=== PATIENT | male | born 1965 | race Caucasian/White ===

== ENCOUNTER 2017-07-27 19:07 | Inpatient (IN) | payer MEDICAID ==
[~2017-07-27] VITALS: Ht 170.2 cm; Wt 50.3 kg
--- NOTE | 2017-07-27 19:07 | NUR ---
PT JORDAN ALS. TAKEN TO BED 10
[2017-07-27 19:12] VITALS: BP 118/66
--- NOTE | 2017-07-27 19:12 | NUR ---
REPORT RECEIVED FROM FARHAT SLAUGHTER.
--- NOTE | 2017-07-27 19:15 | NUR ---
BROUGHT IN BY EMS FROM [facility] C/O ALOC S/P GIVEN MORPHINE 0.5MG IM AND ATIVAN 0.5MG IM FOR COMBATIVENESS WITH STAFF.--NO INJURIES/TRAUMA. [facility] STATED PT GCS 6 IN ROUTE UPON ARRIVAL GCS 13 EYES OPENING 4, MOTOR OBEYS COMMAND 6, SPEECH INAPPROPRIATE WORDS 3--NO FACIAL ASYMMETRY. --STAFF FROM FACILITY REPORTED TO EMS , AMMONIA HIGH NO NUMBER GIVEN HX--METH USE, HEP C, SZ, HTN, ANXIETY, PSYCHOSIS, ESRD, ALCOHOL ABUSE, RX--TYLENOL 650MG SUPP, ATROPINE SULF SOLUTION 1% OS GTTS, BISACODYL SUPP, DEPAKOTE DELAYED RELEASE 250MG BID, HYDROXYZINE 10MG TID PRURITUS, LACTULOSE SOLUTION 10GM/15ML 30ML PO QID, LEVETIRACETAM 500[facility] BID, ATIVAN 0.5MG PO, MORPHINE, ZOFRAN, SEROQUEL 25MG QD (50MG HS), THIAMINE 100MG QD
--- NOTE | 2017-07-27 20:00 | NUR ---
PT AGITATED, ATTEMPTING TO GET OUT OF BED.
--- NOTE | 2017-07-27 20:00 | NUR ---
Physician order given to place VELCO type restraints to ARMS to prevent HARM TO SELF. Resraints placed with quick-release ties to bed frame. Pt under observation.
--- NOTE | 2017-07-27 20:05 | NUR ---
Dr. Carrillo evaluating patient at bedside.
[2017-07-27 20:36] LABS: BASOPHILS % (AUTO) 0.5 % (0.0-2.0); EOSINOPHILS # (AUTO) 0.2 K/uL (0-0.4); EOSINOPHILS % (AUTO) 3.6 % (0.0-4.0); HEMATOCRIT 27.1 % (36-52); HEMOGLOBIN 9.1 g/dL (12.0-18.0); LYMPHOCYTES # (AUTO) 1.1 K/uL (2.0-11.5); MEAN CORPUSCULAR HEMOGLOBIN 30 pg (27-31); MEAN CORPUSCULAR HGB CONC 34 g/dL (33-37); MEAN CORPUSCULAR VOLUME 89.6 fL (80-94); MONOCYTES # (AUTO) 0.6 K/uL (0.8-1.0); MONOCYTES % (AUTO) 11.2 % (1.7-9.3); NEUTROPHILS # (AUTO) 3.4 K/uL (1.8-7.7); NEUTROPHILS % (AUTO) 63.7 % (42.2-75.2); PLATELET COUNT (AUTO) 52 K/uL (140-450); RED BLOOD CELL COUNT(AUTO) 3.03 MIL/uL (4.20-6.10); RED CELL DISTRIBUTION WIDTH 17.4 % (11.6-13.7); WHITE BLOOD COUNT (AUTO) 5.3 K/uL (4.8-10.8)
[2017-07-27 20:54] LABS: APPEARANCE,URINE CLEAR (CLEAR); BLOOD, URINE NEGATIVE (NEGATIVE); LEUKOCYTE ESTERASE ,URINE NEGATIVE (NEGATIVE); NITRITE, URINE NEGATIVE (NEGATIVE); PH,URINE 5.5 (5.0-9.0); UGLUCOSE NEGATIVE (NEGATIVE)
[2017-07-27 20:57] LABS: BILIRUBIN,URINE NEGATIVE (NEGATIVE); COLOR,URINE AMBER (YELLOW)
[2017-07-27 21:03] LABS: BARBITURATE, URINE NEG. ng/ml (NEG <=200); BENZODIAZEPINE, URINE NEG. ng/mL (NEG <=200); CANNABINOID, URINE NEG. ng/mL (NEG <=50); COCAINE, URINE NEG. ng/mL (NEG <=300); OPIATE, URINE POS. ng/mL (NEG <=2000); PHENCYCLIDINE SCREEN,URINE NEG. ng/mL (NEG <=25)
--- NOTE | 2017-07-27 21:17 | NUR ---
PER AL AT [facility], PT WILL BE TRANSFERRED FROM [facility] TO [facility] AND THEY WILL NOTIFY HOSPITALIST. [facility] # [phone]
--- NOTE | 2017-07-27 21:30 | NUR ---
SOKE WITH PT OLAMIDE. CONCERNED ABOUT HIS PLACEMENT. STATED INFORMATION REGARDING PT IS ON HOSPICE, HAS END STAGE LIVER DISEASE AND AMJYOTHI DIAZ ELEVATED. Addendum: 07/27/17 at 2209 by [email or web address] SPOKE WITH PT OLAMIDE. CONCERNED ABOUT HIS PLACEMENT. STATED INFORMATION REGARDING PT IS ON HOSPICE, HAS END STAGE LIVER DISEASE AND JED LAGOS
[2017-07-27 22:36] LABS: ANION GAP 11.3 (8-16); CARBON DIOXIDE 27.4 mmol/L (21-32); POTASSIUM 3.7 mmol/L (3.5-5.1)
[2017-07-27 22:37] LABS: CREATININE 0.8 mg/dL (0.7-1.3)
[2017-07-27 22:40] LABS: TOTAL BILIRUBIN 1.3 mg/dL (0.0-1.0)
[2017-07-27 22:41] LABS: ALBUMIN 2.5 g/dL (3.4-5.0)
[2017-07-27] MEDS ORDERED: DOCUSATE SODIUM 100 MG GELCAP PO PRN (23:15)
[2017-07-27] MEDS ORDERED: HYDROcodone/APAP 7.5/325 MG 1 TAB PO PRN (23:15)
[2017-07-27] MEDS ORDERED: MECLIZINE 25 MG TAB PO PRN (23:15)
--- NOTE | 2017-07-27 23:39 | NUR ---
Pt transferred to Tele 107A via BED .
--- NOTE | 2017-07-27 23:45 | NUR ---
report was given to moe gomez
--- NOTE | 2017-07-27 23:45 | NUR ---
ADMITTED PT FROM ER VIA GURNEY. PT IS AGITATED AND TRYING TO GET OUT OF BED. NO RESP DISTRESS NOTED. PT ON ROOM AIR. NO S/S OF PAIN. PT HAS REDNESS TO SACRAL AREA. SCABS TO LEFT ARM AND RIGHT HAND. PICTURES TAKEN. IV TO RIGHT UPPER ARM #18G. SAFETY PRECAUTION IN PLACE. WILL CONTINUE TO MONITOR.
[2017-07-27] MEDS ORDERED: VITB1I PO (23:55)
[2017-07-27] MEDS ORDERED: LEVE500T9 PO (23:55)
[2017-07-27] MEDS ORDERED: ACET-2619 RC (23:55)
[2017-07-27] MEDS ORDERED: DIVA250T PO (23:55)
[2017-07-27] MEDS ORDERED: QUET50TA PO (23:55)
[2017-07-27] MEDS ORDERED: LACT10SO1 PO (23:55)
[2017-07-27] MEDS ORDERED: QUET25TA PO (23:55)
[2017-07-27] MEDS ORDERED: ATA10 PO (23:55)
[2017-07-28] VITALS: BP 137/88
[2017-07-28] MEDS ORDERED: ATI.5 PO (00:10)
[2017-07-28] MEDS ORDERED: ONDA4TAB PO (00:10)
[2017-07-28] MEDS ORDERED: MINOIL PO (00:10)
[2017-07-28] MEDS ORDERED: MSCON15 PO (00:10)
[2017-07-28] MEDS ORDERED: BISA5ECT43 PO (00:10)
[2017-07-28] MEDS ORDERED: ATRO10DR OP (00:10)
[2017-07-28] MEDS ORDERED: MORP10SO PO (00:10)
[2017-07-28] MEDS ORDERED: MINERAL OIL 30 ML UDC PO SCH (00:15)
[2017-07-28] MEDS ORDERED: MORPHINE TAB ER 15 MG TABER PO PRN (00:15)
[2017-07-28] MEDS ORDERED: ACETAMINOPHEN 325 MG TAB PO SCH (00:15)
[2017-07-28] MEDS ORDERED: BISACODYL 10 MG SUPP RC ONE (00:15)
[2017-07-28] MEDS ORDERED: ONDANSETRON 4 MG TAB PO PRN (00:15)
[2017-07-28] MEDS ORDERED: LORazepam 0.5 MG TAB PO SCH (00:15)
[2017-07-28] MEDS ORDERED: MORPHINE SULFATE ORAL SOLN 2 MG/ML UDC PO PRN (00:15)
[2017-07-28] MEDS ORDERED: QUEtiapine FUMARATE 25 MG TAB PO SCH (00:30)
--- NOTE | 2017-07-28 00:30 | NUR ---
PT IS AGITATED AND COMBATIVE TRYING TO GET OUT OF BED. SOFT WRIST RESTRAINT APPLIED. NO RESP DISTRESS NOTED. NO S/S OF PAIN.
[2017-07-28] MEDS ORDERED: THIA100T34 PO (00:32)
[2017-07-28 00:40] LABS: CHOL/HDL RATIO 4.1 (1-4.5); FREE T4 (FREE THYROXINE) 1.15 ng/dL (0.76-1.46); MAGNESIUM 1.5 mg/dL (1.8-2.4); PHOSPHORUS 3.9 mg/dL (2.5-4.9); THYROID STIMULATING HORMONE 1.71 uIU/mL (0.34-3.74)
[2017-07-28] MEDS: NACL 0.9% 1,000 ML IV SCH ×2 (00:42→10:30)
[2017-07-28] MEDS ORDERED: MAG SULF 2000 MG/WATER PREMIX 50 ML IV SCH (02:00)
[2017-07-28] MEDS ORDERED: LACTULOSE 20 GM/30 ML UDC PO SCH (02:00)
--- NOTE | 2017-07-28 02:11 | NUR ---
PT TRYING TO REMOVE SOFT WRIST RESTRAINTS AND TRYING TO KICK NURSES TO GET OUT OF BED . DR. MAN ORDERED TO GIVE ATIVAN 2 MG IVP. ORDER CARRIED OUT.
[2017-07-28] MEDS ORDERED: LORazepam 2 MG/ML VIAL IM/IVP SCH (02:30)
[2017-07-28] MEDS: HALOPERIDOL IM 5 MG/ML VIAL IM PRN (03:47)
--- NOTE | 2017-07-28 03:47 | NUR ---
PT STILL AGITATED AND TRYING TO GET OUT OF BED. DR. MAN ORDERED HALDOL 5 MG IM. ORDERED CARRIED OUT.
--- NOTE | 2017-07-28 04:00 | NUR ---
PT REMOVED TELE MONITOR AND REFUSED TO PUT IT BACK. REFUSED VS CHECK.
--- NOTE | 2017-07-28 04:28 | NUR ---
PT STILL TRYING TO GET OUT OF BED. ASSISTED PT BACK TO BED. NO RESP DISTRESS NOTED. SAFETY PRECAUTION IN PLACE.
--- NOTE | 2017-07-28 06:25 | NUR ---
PT SLEEPING BUT WAKES EASILY. NO S/S OF DISTRESS NOTED.
--- NOTE | 2017-07-28 06:48 | NUR ---
PATIENT HAS BEEN SCREENED AND CATEGORIZED LOW NUTRITION RISK. PATIENT WILL BE SEEN WITHIN 7 DAYS OF ADMISSION. 08/02/17 DUC DIAZ MS, RDN
--- NOTE | 2017-07-28 07:00 | NUR ---
ENDORSED PT TO DAY SHIFT NURSE. PT IN STABLE CONDITION.
--- NOTE | 2017-07-28 07:10 | NUR ---
RECEIVED PT FROM SPACE TECHNOLOGIST NURSEBRADLEY, PT IS AWAKE AND ON A SOFT WRIST RESTRAINT. SIDE RAILS ARE UP AND CALL LIGHT WITHIN REACH.PT HAS AN IV LINE ON THE RT UA G. 18, WITH NS RUNNING AT 100ML/HR, INTACT. PT'S MENTAL STATUS IS ALTERED AND IS NON-VERBAL. NO SIGN OF DISTRESS AND SAFETY PRECAUTION ENSURED. WILL CONTINUE TO MONITOR.
[2017-07-28 07:11] LABS: BASOPHILS % (AUTO) 0.5 % (0.0-2.0); EOSINOPHILS # (AUTO) 0.3 K/uL (0-0.4); EOSINOPHILS % (AUTO) 4.6 % (0.0-4.0); HEMATOCRIT 30.8 % (36-52); HEMOGLOBIN 10.4 g/dL (12.0-18.0); LYMPHOCYTES # (AUTO) 1.2 K/uL (2.0-11.5); LYMPHOCYTES % (AUTO) 21.9 % (20.5-51.1); MEAN CORPUSCULAR HEMOGLOBIN 30 pg (27-31); MEAN CORPUSCULAR HGB CONC 34 g/dL (33-37); MEAN CORPUSCULAR VOLUME 89.8 fL (80-94); MONOCYTES # (AUTO) 0.6 K/uL (0.8-1.0); MONOCYTES % (AUTO) 10.8 % (1.7-9.3); NEUTROPHILS # (AUTO) 3.4 K/uL (1.8-7.7); NEUTROPHILS % (AUTO) 62.2 % (42.2-75.2); PLATELET COUNT (AUTO) 55 K/uL (140-450); RED BLOOD CELL COUNT(AUTO) 3.43 MIL/uL (4.20-6.10); RED CELL DISTRIBUTION WIDTH 17.5 % (11.6-13.7); WHITE BLOOD COUNT (AUTO) 5.4 K/uL (4.8-10.8)
[2017-07-28 07:35] LABS: MAGNESIUM 2.3 mg/dL (1.8-2.4); PHOSPHORUS 3.3 mg/dL (2.5-4.9)
[2017-07-28 07:41] LABS: ANION GAP 13.1 (8-16); CARBON DIOXIDE 26.5 mmol/L (21-32); CREATININE 0.8 mg/dL (0.7-1.3); POTASSIUM 3.6 mmol/L (3.5-5.1)
[2017-07-28 08:00] VITALS: BP 140/96
[2017-07-28] MEDS ORDERED: MINERAL OIL 30 ML UDC PO PRN (08:25)
[2017-07-28] MEDS: THIAMINE 100 MG TAB PO SCH (08:39)
[2017-07-28] MEDS: levETIRAcetam 500 MG TAB PO SCH ×2 (08:39→21:16)
[2017-07-28] MEDS: QUEtiapine FUMARATE 25 MG TAB PO SCH ×2 (08:39→21:17)
[2017-07-28] MEDS: hydrOXYzine HCL 10 MG TAB PO SCH ×3 (08:40→17:02)
[2017-07-28] MEDS: DIVALPROEX 500 MG TABEC PO SCH ×2 (08:40→21:16)
[2017-07-28] MEDS: FERROUS GLUCONATE 324 MG TAB PO SCH ×2 (08:41→17:02)
[2017-07-28] MEDS: DOCUSATE SODIUM 100 MG GELCAP PO SCH ×2 (08:41→21:16)
--- NOTE | 2017-07-28 09:10 | NUR ---
PT IS AWAKE AND VITAL SIGNS TAKEN AND IS STABLE. NO SIGN OF DISTRESS NOTED. RESTRAINT WAS RELEASED AND ASSESSMENT WAS DONE ON THE PT. PT IS AWAKE AND WAS TRYING TO GET UP AND GO DOWN ON THE BED. ASSISTED BACK TO BED AND SAFETY PRECAUTION ENFORCED.
[2017-07-28 12:00] VITALS: BP 132/91
--- NOTE | 2017-07-28 12:35 | NUR ---
GENARO FROM CASE MANAGEMENT CALLED AND ASKED REGARDING THE STATUS OF THE PT. INQUIRY ANSWERED. INFORMED GENARO THAT PT MUST BEM PLACE ON A HOSPICE PER SUPERVISOR WOOL SHEARING NURSE ENDORSEMENT.
--- NOTE | 2017-07-28 12:45 | NUR ---
ASSESSED RESTRAINTS ON THE PT AND VITAL SIGNS TAKEN AND IS STABLE. PT IS ATTEMPTING TO GO DOWN OUT FROM THE BED, ASSISTED BACK TO BED AND MADE COMFORTABLE. MEDICATION GIVEN AND PT TOLERATED IT. NO SIGN OF DISTRESS NOTED. WILL MONITOR.
[2017-07-28 16:00] VITALS: BP 117/90
--- NOTE | 2017-07-28 17:20 | NUR ---
PT IS AWAKE AND VITAL SIGNS TAKEN AND RESTRAINT WAS ASSESSED. NO SIGN OF DISTRESS NOTED AND WILL MONITOR.
--- NOTE | 2017-07-28 18:50 | NUR ---
PT PULLED OUT HIS IV LINE AND RESTRAINT WAS TAKEN OUT. PT WAS CLEANED UP AND RESTRAINT WAS PUT IN PLACE. NO SIGN OF DISTRESS NOTED. WILL ENDORSE TO WEB FEEDER NURSE.
--- NOTE | 2017-07-28 19:15 | NUR ---
ENDORSED PT TO ANATOMIC PATHOLOGY MANAGER NURSE, KARON, PT IS STABLE AT THIS TIME.
--- NOTE | 2017-07-28 19:16 | NUR ---
RECEIVED PT FROM DAY SHIFT NURSE MARY-FARHAT. ANX1-CONFUSED AND AWAKE WITH SOFT WRIST RESTRAINT ON. ON ROOM AIR AND NO IV SITE. LEFT ELBOW AND RIGHT HAND SCABS, ALSO SACRAL REDNESS. DISCUSSED PLAN OF CARE HOWEVER PT WAS UNABLE TO RESPOND APPROPRIATELY. PT'S MENTAL STATUS IS ALTERED AND IS NON-VERBAL. NO S/S OF RESPIRATORY DISTRESS OR DISCOMFORT. BED IN LOWEST POSITION, BED BREAKS ON, SIDE RAILS ARE UP. BED SIDE TABLE AND CALL LIGHT WITHIN REACH. WHITE BOARD UPDATED. WILL CONTINUE TO MONITOR.
--- NOTE | 2017-07-28 19:55 | NUR ---
SPOKE WITH DR. MAN ABOUT PT TAKING OUT IV SITE FOR THE SECOND TIME. DR. MAN TO D/C IVF. WILL CONTINUE TO MONITOR.
[2017-07-28 20:00] VITALS: BP 135/84
--- NOTE | 2017-07-28 20:00 | NUR ---
VITAL SIGNS TAKEN AND TOLERATED WELL. WILL CONTINUE TO MONITOR.
--- NOTE | 2017-07-28 20:45 | NUR ---
SOFT WRIST RESTRAINS TAKEN OFF FOR 15 MINUTES. NO SIGNS OF INJURY. PT CONTINUES TO TRY TO GET OUT OF BED. REORIENTED PT. RESTRAINTS APPLIED AGAIN. WILL CONTINUE TO MONITOR.
[2017-07-28] MEDS: LACTULOSE 20 GM/30 ML UDC PO SCH (21:16)
--- NOTE | 2017-07-28 21:20 | NUR ---
SCHEDULED MEDICATION GIVEN. PT HAD A DIFFICULT TIME SWALLOWING COLACE GEL CAPSULE. WILL SPEAK WITH DR. MAN ON POSSIBLY CHANGING MEDICATION TO LIQUID. WILL CONTINUE TO MONITOR.
--- NOTE | 2017-07-28 21:53 | NUR ---
PT SLEEPING IN BED. NO S/S OF RESPIRATORY DISTRESS OR DISCOMFORT. WILL CONTINUE TO MONITOR.
[2017-07-29] VITALS: BP 124/87
--- NOTE | 2017-07-29 | NUR ---
VITAL SIGNS TAKEN AND TOLERATED WELL. NO S/S OF RESPIRATORY DISTRESS OR DISCOMFORT. WILL CONTINUE TO MONITOR.
[2017-07-29] MEDS ORDERED: LORazepam 2 MG/ML VIAL IVP ONE (00:30)
[2017-07-29] MEDS ORDERED: LORazepam 2 MG/ML VIAL ONE (00:33)
--- NOTE | 2017-07-29 00:36 | NUR ---
ATIVAN GIVEN BY CHARGE NURSE TRISTAN FOR AGITATION. WILL CONTINUE TO MONITOR.
[2017-07-29 04:00] VITALS: BP 94/60
--- NOTE | 2017-07-29 04:00 | NUR ---
VITAL SIGNS TAKEN AND TOLERATED WELL. NO S/S OF RESPIRATORY DISTRESS OR DISCOMFORT. WILL CONTINUE TO MONITOR.
--- NOTE | 2017-07-29 06:00 | NUR ---
PT SLEEPING IN BED. NO S/S OF RESPIRATORY DISTRESS OR DISCOMFORT AT THIS TIME. WILL CONTINUE TO MONITOR.
--- NOTE | 2017-07-29 07:30 | NUR ---
RECEIVED PT REPORT FROM POT FLUXER NURSE. PT IS SLEEPING, DROWSY, OX1. SOFT WRIST RESTRAINT ON. CIRCULATION IS FINE, CAP REFILL LESS THAN 3SEC. NO S/S OF ACUTE DISTRESS ON ROOM AIR. NO IV SITE NOTED. LEFT ELBOW AND RIGHT HAND SCABS, ALSO SACRAL REDNESS. BED IN LOWEST POSITION, BED BREAKS ON, SIDE RAILS ARE UP. BED SIDE TABLE AND CALL LIGHT WITHIN REACH. BOARD UPDATED. WILL CONTINUE TO MONITOR.
--- NOTE | 2017-07-29 07:34 | NUR ---
ENDORSED PT CARE TO DAY SHIFT NURSE KATALINA FOR CONTINUITY OF CARE.
[2017-07-29 08:00] VITALS: BP 104/78
[2017-07-29 08:57] LABS: BASOPHILS % (AUTO) 0.4 % (0.0-2.0); EOSINOPHILS # (AUTO) 0.3 K/uL (0-0.4); EOSINOPHILS % (AUTO) 8.2 % (0.0-4.0); HEMATOCRIT 27.1 % (36-52); HEMOGLOBIN 9.5 g/dL (12.0-18.0); MEAN CORPUSCULAR HEMOGLOBIN 31 pg (27-31); MEAN CORPUSCULAR HGB CONC 35 g/dL (33-37); MEAN CORPUSCULAR VOLUME 87.3 fL (80-94); MONOCYTES # (AUTO) 0.5 K/uL (0.8-1.0); PLATELET COUNT (AUTO) 57 K/uL (140-450); RED CELL DISTRIBUTION WIDTH 17.1 % (11.6-13.7); WHITE BLOOD COUNT (AUTO) 3.7 K/uL (4.8-10.8)
[2017-07-29 09:40] LABS: ANION GAP 12.4 (8-16); CARBON DIOXIDE 24.2 mmol/L (21-32); CREATININE 0.6 mg/dL (0.7-1.3); POTASSIUM 3.6 mmol/L (3.5-5.1)
[2017-07-29] MEDS: hydrOXYzine HCL 10 MG TAB PO SCH ×3 (09:45→18:00)
[2017-07-29] MEDS: QUEtiapine FUMARATE 25 MG TAB PO SCH ×2 (09:45→20:21)
[2017-07-29 09:47] LABS: MAGNESIUM 1.5 mg/dL (1.8-2.4); PHOSPHORUS 3.1 mg/dL (2.5-4.9)
[2017-07-29] MEDS: THIAMINE 100 MG TAB PO SCH (09:47)
[2017-07-29] MEDS: DIVALPROEX 500 MG TABEC PO SCH (09:50)
--- NOTE | 2017-07-29 09:50 | NUR ---
PT'S HAS REDNESS ON SACRAL. PIC TAKEN. NOTIFIED DR URIBE. HYDRAGUARD WILL BE ORDERED.
[2017-07-29] MEDS: DOCUSATE 100 MG/10 ML UDC PO SCH ×2 (09:52→20:20)
[2017-07-29] MEDS: levETIRAcetam 100 MG/ML ORASYR PO SCH ×2 (09:52→20:20)
[2017-07-29] MEDS: FERROUS GLUCONATE 324 MG TAB PO SCH (09:52)
[2017-07-29] MEDS: LACTULOSE 20 GM/30 ML UDC PO SCH ×2 (09:53→20:20)
[2017-07-29 10:22] LABS: LYMPHOCYTES % (AUTO) 26.3 % (20.5-51.1); MONOCYTES % (AUTO) 12.1 % (1.7-9.3)
[2017-07-29] MEDS ORDERED: DIVALPROEX 250 MG TABEC PO SCH ×2 (10:37)
[2017-07-29 12:00] VITALS: BP 105/65
[2017-07-29] MEDS: MAG SULF 2000 MG/WATER PREMIX 100 ML IV SCH ×2 (12:17→15:31)
--- NOTE | 2017-07-29 12:30 | NUR ---
IV INSERTED BY FARHAT MCDANIEL. PT TOLERATED OK.
--- NOTE | 2017-07-29 14:20 | NUR ---
PT TRYING TO GET OUT OF BED. IV LINE WAS PULLED AND DISCONNECTED. RE-SECURED IV LINE. REORIENTED PT, WASN'T EFFECTIVE. WILL GIVE ATIVAN PO TO CALM PT DOWN.
[2017-07-29] MEDS ORDERED: HYDRAGUARD CREAM TP ONE (14:42)
[2017-07-29] MEDS: LORazepam 0.5 MG TAB PO PRN ×2 (14:47→20:20)
[2017-07-29] MEDS: HYDRAGUARD CREAM TP SCH (15:29)
[2017-07-29] MEDS: HALOPERIDOL IM 5 MG/ML VIAL IM PRN (15:30)
--- NOTE | 2017-07-29 15:30 | NUR ---
PT GOT UP AGAIN, PUTTING PT BACK TO BED. RE-ORIENTED PT, WASN'T EFFECTIVE. ATIVAN WAS NOT EFFECTIVE EITHER. WILL GIVE OTHER MED TO CALM PT DOWN.
[2017-07-29 15:33] LABS: T4 (THYROXINE) 6.4 ug/dL (4.5-12.0)
[2017-07-29 16:00] VITALS: BP 94/65
--- NOTE | 2017-07-29 19:30 | NUR ---
ENDORSED PT TO SEXUAL ASSAULT SOCIAL WORKER RN. PT INSTABLE CONDITION.
--- NOTE | 2017-07-29 19:31 | NUR ---
RECEIVED PT FROM DAY SHIFT NURSE MARY-FARHAT. ANX1-CONFUSED AND AWAKE WITH SOFT WRIST RESTRAINT ON. ON ROOM AIR AND IV ON RIGHT UPPPER ARM 20G-SL AND WRAPPED IN GAUZE. LEFT ELBOW AND RIGHT HAND SCABS, ALSO SACRAL REDNESS. DISCUSSED PLAN OF CARE HOWEVER PT WAS UNABLE TO RESPOND APPROPRIATELY. PT'S MENTAL STATUS IS ALTERED AND IS NON-VERBAL. NO S/S OF RESPIRATORY DISTRESS OR DISCOMFORT. BED IN LOWEST POSITION, BED BREAKS ON, SIDE RAILS ARE UP. BED SIDE TABLE AND CALL LIGHT WITHIN REACH. WHITE BOARD UPDATED. WILL CONTINUE TO MONITOR.
[2017-07-29 20:00] VITALS: BP 112/76
--- NOTE | 2017-07-29 20:00 | NUR ---
VITAL SIGNS TAKEN AND TOLERATED WELL. NO S/S OF RESPIRATORY DISTRESS OR DISCOMFORT NOTED AT THIS TIME. WILL CONTINUE TO MONITOR.
[2017-07-29] MEDS: DIVALPROEX 250 MG TABEC PO SCH (20:20)
--- NOTE | 2017-07-29 20:20 | NUR ---
SCHEDULED MEDICATION GIVEN AND TOLERATED WELL. ATIVAN GIVEN FOR AGITATION. PT TRIED TO STRIKE OUT AT CRUSHER AND BINDER OPERATOR DURING PERINEAL CARE AFTER PT HAD BOWEL MOVEMENT. WILL CONTINUE TO MONITOR.
--- NOTE | 2017-07-29 21:00 | NUR ---
PT CONTINUES TO BE AGGRESSIVE TOWARD EMPLOYEES HE TRIES TO GET OUT OF BED BY KICKING AND BITING. WILL CONTINUE TO MONITOR
[2017-07-30] VITALS: BP 134/85
--- NOTE | 2017-07-30 | NUR ---
VITAL SIGNS TAKEN AND TOLERATED WELL. NO S/S OF RESPIRATORY DISTRESS OR DISCOMFORT. WILL CONTINUE TO MONITOR.
[2017-07-30] MEDS: HALOPERIDOL IM 5 MG/ML VIAL IM PRN ×2 (05:08→14:27)
--- NOTE | 2017-07-30 05:10 | NUR ---
HALDOL GIVEN FOR SEVERE AGGRESSION. PT STARTED TO KICK ICE CUTTER KOBE AND MYSELF, ALSO TRIED TO BITE US. PT TOOK OFF RIGHT RESTRAINT AND AM UNABLE TO RESTRAIN HIM DUE TO HIS SEVERE AGGRESSION. SECURITY WAS CALLED FOR SAFETY. WILL CONTINUE TO MONITOR.
--- NOTE | 2017-07-30 05:30 | NUR ---
RESTRAINS ARE OFF DUE TO PT AGGRESSION. PT TOOK OFF RIGHT RESTRAINT AND I TOOK OFF LEFT RESTRAINT ONCE PT WAS CALM. PT RESTING IN BED. NO S/S OF RESPIRATORY DISTRESS OR DISCOMFORT. WILL CONTINUE TO MONITOR.
--- NOTE | 2017-07-30 06:23 | NUR ---
PT SLEEPING IN BED. NO S/S OF RESPIRATORY DISTRESS OR DISCOMFORT. WILL CONTINUE TO MONITOR.
[2017-07-30 06:56] LABS: BASOPHILS % (AUTO) 0.6 % (0.0-2.0); EOSINOPHILS # (AUTO) 0.3 K/uL (0-0.4); EOSINOPHILS % (AUTO) 5.4 % (0.0-4.0); HEMATOCRIT 27.9 % (36-52); HEMOGLOBIN 9.9 g/dL (12.0-18.0); LYMPHOCYTES # (AUTO) 1.1 K/uL (2.0-11.5); LYMPHOCYTES % (AUTO) 23.1 % (20.5-51.1); MEAN CORPUSCULAR HEMOGLOBIN 31 pg (27-31); MEAN CORPUSCULAR HGB CONC 36 g/dL (33-37); MEAN CORPUSCULAR VOLUME 86.1 fL (80-94); MONOCYTES # (AUTO) 0.6 K/uL (0.8-1.0); MONOCYTES % (AUTO) 12.5 % (1.7-9.3); NEUTROPHILS # (AUTO) 2.7 K/uL (1.8-7.7); NEUTROPHILS % (AUTO) 58.4 % (42.2-75.2); PLATELET COUNT (AUTO) 69 K/uL (140-450); RED BLOOD CELL COUNT(AUTO) 3.24 MIL/uL (4.20-6.10); WHITE BLOOD COUNT (AUTO) 4.7 K/uL (4.8-10.8)
--- NOTE | 2017-07-30 07:24 | NUR ---
ENDORSED PT CARE TO DAY SHIFT NURSE KATALINA FOR CONTINUITY OF CARE.
--- NOTE | 2017-07-30 07:30 | NUR ---
RECEIVED PT REPORT FROM ENTRY LEVEL WEB DEVELOPER NURSE. PT IS AWAKE, DROWSY, OX1. SOFT WRIST RESTRAINT IS OFF. PT RESTING IN BE, IS NOT TRYING TO GET OUT OF BED AT THIS TIME. NO S/S OF ACUTE DISTRESS ON ROOM AIR. IV TO THE RIGHT UPPER ARM, PATENT AND INTACT,SL. BED IN LOWEST POSITION, BED BREAKS ON, ALARM, SIDE RAILS ARE UP. BED SIDE TABLE AND CALL LIGHT WITHIN REACH. BOARD UPDATED. WILL MONITOR CLOSELY.
[2017-07-30 07:34] LABS: MAGNESIUM 1.5 mg/dL (1.8-2.4)
[2017-07-30 07:59] LABS: ANION GAP 2.6 (8-16); CARBON DIOXIDE 23.8 mmol/L (21-32); CREATININE 0.8 mg/dL (0.7-1.3); POTASSIUM 3.4 mmol/L (3.5-5.1)
[2017-07-30 08:00] VITALS: BP 107/80
[2017-07-30] MEDS: MAG SULF 2000 MG/WATER PREMIX 50 ML IV SCH ×2 (09:50→13:07)
[2017-07-30] MEDS: levETIRAcetam 100 MG/ML ORASYR PO SCH ×2 (10:25→22:34)
[2017-07-30] MEDS: DOCUSATE 100 MG/10 ML UDC PO SCH ×2 (10:25→22:33)
[2017-07-30] MEDS: LACTULOSE 20 GM/30 ML UDC PO SCH (10:25)
[2017-07-30] MEDS: THIAMINE 100 MG TAB PO SCH (10:29)
[2017-07-30] MEDS: QUEtiapine FUMARATE 25 MG TAB PO SCH ×2 (10:29→22:34)
[2017-07-30] MEDS: DIVALPROEX 250 MG TABEC PO SCH ×2 (10:29→22:34)
[2017-07-30] MEDS: hydrOXYzine HCL 10 MG TAB PO SCH ×4 (10:30→18:16)
[2017-07-30] MEDS ORDERED: POTASSIUM CHLORIDE 10 MEQ TABER PO SCH (10:30)
--- NOTE | 2017-07-30 11:35 | NUR ---
PT TRIED TO GET OUT OF BED, ASKED PT TO GO BACK TO BED DUE TO SAFETY ISSUE. REORIENTED PT, PT IS CONFUSED, MUMBLING AND CUSSING. PT GETS AGITATED, PUNCHING ME IN THE ARM AND KICKING HIS LEGS. CALLED PHYSICAL THERAPY WHO CAME AND WALKED WITH PATIENT.
--- NOTE | 2017-07-30 13:06 | NUR ---
Fisheries Diver Note: Per Love [facility] , they will accept patient upon discharge.
--- NOTE | 2017-07-30 13:10 | NUR ---
PT IS SLEEPING AT THIS TIME. NO S/S OF ACUTE DISTRESS. NO RESTRAINT AT THIS TIME.
[2017-07-30] MEDS: LORazepam 0.5 MG TAB PO PRN (13:54)
--- NOTE | 2017-07-30 14:28 | NUR ---
GRADY RN, ON BREAK. ADMINISTERED HALIDOL PATIENT IS EXTREMELY AGITATED KICKING, TRYING TO HIT, BITE PETS AND PET SUPPLIES SALESPERSON AND NURSES. HE IS USING PROFANITY. PATIENT TOLERATED MED WELL. WILL CONTINUE TO MONITOR THE PATIENT.
--- NOTE | 2017-07-30 14:34 | NUR ---
[id number] RECEIVED A CALL FROM PUJA GRIGGS AT [facility] REQUESTING A CLINICAL UPDATE ON PT. PROVIDED HER WITH A VERBAL CLINICAL REPORT AND WILL FAX INITIAL REVIEW TO FAX [phone] AND CALL BACK NUMBER IS [phone]. 1400 CLINICAL REVIEW FAXED REQUESTED.
--- NOTE | 2017-07-30 15:42 | NUR ---
Furniture Repairer Note: I received a call from Fire Control System Installer Willis from [facility] , he stated they will be able to accept patient after all and provide services for patient at [facility] . He requested MD's hospice eval order and HNP to be fax to him, fax number . I faxed info. Charge Nurse Parish made aware [facility] able to follow up with patient at [facility].
[2017-07-30 16:10] VITALS: BP 94/65
--- NOTE | 2017-07-30 16:11 | NUR ---
PT RETURNED FROM HEAD CT SCAN, ACCORDING TO REST ROOM MAID, PT WAS MOVING INITIALLY BUT EVENTUALLY PT WAS ABLE TO STAY STILL. VITALS TAKEN. WILL CONTINUE TO MONITOR.
--- NOTE | 2017-07-30 16:35 | NUR ---
SPOKE WITH HANANE HINSON TO RENEW RESTRAINT ORDER, ORDERED TO CHANGE ATIVAN PO TO 1MG TO Q8H SCHEDULED. DR VYAS STATED SHE ALREADY SPOKE WITH DR SRINIVASAN FOR CONSULT. MADE AWARE THAT CT HEAD HAS BEEN DONE.
--- NOTE | 2017-07-30 17:35 | NUR ---
PHYSICAL THERAPY CO-SIGN The Physical Therapy Progress Notes documented by Data Entry Representative have been reviewed. Reviewed/Co-Signed by: Sol Quarles Documentation Done by: Nicolas Gale PTA Patient britt tx well, progressing towards goals, cont with PT POC as britt/safe. Addendum: 07/30/17 at 1735 by Sol Quarles PT Amended: Links added.
--- NOTE | 2017-07-30 18:20 | NUR ---
PT WAS FED DINNER, PT COOPERATED WELL. DR SRINIVASAN, HAS SEEN THE PT.
[2017-07-30] MEDS ORDERED: MORPHINE SULFATE ORAL SOLN 2 MG/ML UDC PO PRN (18:40)
--- NOTE | 2017-07-30 19:30 | NUR ---
ENDORSED PT TO DIETETIC TECHNICIAN REGISTERED RN. PT INSTABLE CONDITION.
--- NOTE | 2017-07-30 19:30 | NUR ---
REPORT RECEIVED FORM DAYSHIFT NURSE AT BEDSIDE FOR TRANSFER OF CARE. PT IS LYING IN LOW BED, WITH SIDE RAILS UP X [address] IN PLACE. PT NOTED WITH REDNESS OF THE SACRAL AND HAS A NEW ORDER FOR Z GUARD TO AREA TO PROTECT SKIN. PT IS AO X 1, HE IS SLEEPING BUT EASILY AROUSABLE TO NAME. PT IS IN SOFT RESTRAINTS. SKIN IN TACT UNDER RESTRAINTS AND CAP REFILL IS LESS THAN 2 SECONDS. PT HAS NO S/S OF PAIN OR DISTRESS.
[2017-07-30] MEDS ORDERED: LORazepam 0.5 MG TAB PO SCH (21:00)
--- NOTE | 2017-07-30 21:30 | NUR ---
PT TRYING TO GET UP OUT OF BED DESPITE RESTRAINTS,. PT WAS NOTED WITH WET DIAPER AND WAS ASSISTED BACK TO BED CHANGED AND REPOSITIONED FOR COMFORT.
[2017-07-30] MEDS: LORazepam 1 MG TAB PO SCH (22:33)
--- NOTE | 2017-07-30 23:30 | NUR ---
PT RESTRAINTS TAKEN OFF FOR 30 MINUTES, PT SKIN INTACT ON WRIST AND DIAPER IS DRY. PT WAS GIVEN FLUIDS AND A SNACK WITH ASSISTANCE. PT WAS TRYING TO GET OUT OF BED UNASSISTED, AND WAS TRYING TO KICK AT STAFF. PT ASSISTED BACK TO BED AND RESTRAINTS PLACED ON BILATERAL WRISTS. PT CALMED DOWN AND IS NOW LYING IN BED WITH HOB ELEVATED 35% . PT IS QUIET NO S/ S OF PAIN OR DISTRESS NOTED, BED IN LOW POSITION AND FREQUENT CHECKS RENDERED.
[2017-07-31] MEDS ORDERED: BISACODYL 10 MG SUPP RC PRN (00:15)
--- NOTE | 2017-07-31 01:00 | NUR ---
PT IN BED, RESTARINTS ON BUT NO S/S OF SKIN BREAKDOWN. CAP REFILL LESS THAN 2 SECONDS. PT REPOSITIONED AND MADE COMFORTABLE.
--- NOTE | 2017-07-31 01:30 | NUR ---
PT ASLEEP NO S/S OF PAIN OR DISTRESS NOTED BED LOW ALL SIDE RAILS UP AND FREQUENT CHECKS RENDERED.
[2017-07-31] MEDS: LORazepam 1 MG TAB PO SCH (05:51)
[2017-07-31 06:00] VITALS: BP 115/75
[2017-07-31 07:01] LABS: BASOPHILS % (AUTO) 0.2 % (0.0-2.0); EOSINOPHILS # (AUTO) 0.2 K/uL (0-0.4); EOSINOPHILS % (AUTO) 4.1 % (0.0-4.0); HEMOGLOBIN 9.3 g/dL (12.0-18.0); LYMPHOCYTES # (AUTO) 1.1 K/uL (2.0-11.5); LYMPHOCYTES % (AUTO) 22.8 % (20.5-51.1); MEAN CORPUSCULAR HEMOGLOBIN 30 pg (27-31); MEAN CORPUSCULAR HGB CONC 34 g/dL (33-37); MEAN CORPUSCULAR VOLUME 87.9 fL (80-94); MONOCYTES # (AUTO) 0.6 K/uL (0.8-1.0); NEUTROPHILS # (AUTO) 3.1 K/uL (1.8-7.7); NEUTROPHILS % (AUTO) 60.9 % (42.2-75.2); PLATELET COUNT (AUTO) 68 K/uL (140-450); RED BLOOD CELL COUNT(AUTO) 3.07 MIL/uL (4.20-6.10); RED CELL DISTRIBUTION WIDTH 17.1 % (11.6-13.7)
[2017-07-31 07:10] LABS: PROTHROMBIN TIME 17.5 secs (10.8-13.4)
--- NOTE | 2017-07-31 07:15 | NUR ---
TRANSFER OF CARE TO DAYSHIFT AT BEDSIDE PT IN STABLE CONDITION
[2017-07-31 07:16] LABS: ALBUMIN 2.2 g/dL (3.4-5.0); ANION GAP 10.7 (8-16); CARBON DIOXIDE 24.4 mmol/L (21-32); CREATININE 0.7 mg/dL (0.7-1.3); MAGNESIUM 1.6 mg/dL (1.8-2.4); POTASSIUM 4.1 mmol/L (3.5-5.1)
--- NOTE | 2017-07-31 07:23 | NUR ---
ASSUMED CONTINUITY OF CARE. NO SIGNS AND SYMPTOMS OF ACUTE DISTRESS NOTED. INITIAL ASSESSMENT DONE. RE-ORIENTED TO EVENTS AND SURROUNDINGS. HOB ELEVATED AND KEEP COMFORTABLE. FALL PRECAUTION APPLIED. CALL LIGHT WITHIN REACH.
[2017-07-31 08:00] VITALS: BP 104/74
[2017-07-31 08:16] LABS: FOLIC ACID 19.3 ng/mL (>3.0)
[2017-07-31] MEDS ORDERED: SENNA 8.6 MG TAB PO SCH (09:00)
[2017-07-31] MEDS: DOCUSATE 100 MG/10 ML UDC PO SCH ×2 (09:03→21:21)
[2017-07-31] MEDS: LACTULOSE 20 GM/30 ML UDC PO SCH ×4 (09:03→21:18)
[2017-07-31] MEDS: levETIRAcetam 100 MG/ML ORASYR PO SCH ×2 (09:03→21:21)
[2017-07-31] MEDS: QUEtiapine FUMARATE 25 MG TAB PO SCH (09:04)
[2017-07-31] MEDS: THIAMINE 100 MG TAB PO SCH (09:04)
[2017-07-31] MEDS: DIVALPROEX 250 MG TABEC PO SCH ×2 (09:04→21:21)
--- NOTE | 2017-07-31 09:05 | NUR ---
PHYSICAL THERAPIST CAME FOR PT. EVAL AND TREATMENT.
[2017-07-31] MEDS: HYDRAGUARD CREAM TP SCH (09:06)
--- NOTE | 2017-07-31 09:45 | NUR ---
PT. RELEASED FROM BILATERAL SOFT WRIST RESTRAINT. CALM, QUIET AND COOPERATIVE. NO AGGRESSIVE BEHAVIOR OBSERVED. CONTINUE TO MONITOR.
--- NOTE | 2017-07-31 11:00 | NUR ---
PT. RESTING ON BED QUIETLY. KEEP COMFORTABLE ON BED. CALL LIGHT WITHIN REACH.
--- NOTE | 2017-07-31 11:04 | NUR ---
DUE TO CHANGE IN MIKE SCORE PATIENT HAS BEEN RESCREENED AND CATEGORIZED MODERATE RISK. PATIENT WILL BE SEEN WITHIN 3-5 DAYS OF ADMISSION. 08/01/[address]
--- NOTE | 2017-07-31 11:33 | NUR ---
FAXED CONCURRENT REVIEW TO [facility] [phone] PHONE [phone]
[2017-07-31 12:00] VITALS: BP 98/60
--- NOTE | 2017-07-31 12:40 | NUR ---
DR. VYAS CAME AND SPOKE TO PT. AT BEDSIDE. PT. CALM AND COOPERATIVE. INFORMED DR. VYAS OF MAG 1.6.
[2017-07-31] MEDS ORDERED: MAGNESIUM OXIDE 400 MG TAB PO SCH (13:30)
--- NOTE | 2017-07-31 15:10 | NUR ---
STILL OFF FROM BILATERAL SOFT WRIST RESTRAINT. PT. REMAINED CALM, QUIET AND COOPERATIVE. CONTINUE MONITORING.
--- NOTE | 2017-07-31 15:11 | NUR ---
WOUND CARE EVALUATION NOTES: REASON FOR EVALUATION: PRESSURE INJURY SACRALCOCCYX SKIN ASSESSMENT DONE ON THIS 51 Y/O MALE PATIENT ADMITTED TO [facility], WITH INITIAL DIAGNOSIS OF ALTER MENTAL STATUS. PAST MEDICAL HISTORY INCLUDE ESRD, ALCOHOL AND HEROIN ABUSE WITH MALNUTRITION. ALL ABOVE INFORMATION WAS OBTAINED FROM THE ADMISSION H&P. PATIENT IS AWAKE AND CONFUSE. SKINNY SKIN TO BONE WITH MULTIPLE DRY SCABS TO UPPER ARMS. BLE NO HAIR GROWTH AND BILATERAL PEDAL PULSES PRESENT. CAPILLARY REFILL <3 SEC PLAN OF CARE AND PRESSURE PREVENTIVE MEASURES DISCUSSED WITH PT, PT VERBALIZES UNDERSTANDING. WILL REINFORCE TEACHING. CN REPORT CHANGE OF CONDITION TO SACRAL COCCYX AREA, PT IS INCONTINENT OF BOWEL / BLADDER WITH FRICTION INTEGUMENTARY: -MULTIPLE DRY SCABS TO UPPER EXTREMITIES -SACRALCOCCYX STAGE 2 PRESSURE INJURY WITH 1X0.5X0.1 WOUND BED IS PALE PINK, MOIST NO ODOR WITH SURROUNDING REDNESS 2X3 CM INDICATED FURTHER DAMAGE, DUKE-WOUND SKIN INTACT RECOMMENDATIONS: -APPLY Z-GUARD TO SACRALCOCCYX PRESSURE INJURY AND COVER WITH OPTIFORM Q DAYS AND PRN IF SOILING -TURN AND REPOSITION PATIENT Q2H -ASSESS AND MONITOR SKIN CONDITION DURING POSITION CHANGE, PLEASE PAY ATTENTION TO SACRALCOCCYX -OFFLOAD BILATERAL HEELS BY PLACING PILLOWS UNDER CALVES AT ALL TIMES, UNLESS OTHERWISE CONTRAINDICATED -PRESSURE REDISTRIBUTION SURFACE THERAPY -KEEP SKIN CLEAN AND DRY AT ALL TIMES. RECOMMENDATIONS DISCUSSED WITH PRIMARY RN WILL FOLLOW UP PATIENT Q 7 -10 DAYS AND PRN. PLEASE CONTACT WOUND CARE NURSE FOR ANY QUESTION OR CHANGES IN WOUND CONDITION
--- NOTE | 2017-07-31 15:39 | NUR ---
System Consultant Note: Per , has determined that patient does not meet hospice criteria at this time. She stated patient can be transfer to [facility] today, case isabella mcmanus. Addendum: 07/31/17 at 1546 by Pema Melo SS correction: counseling case manager Ally mcmanus
--- NOTE | 2017-07-31 15:49 | NUR ---
FAXED CORRECTED PROGRESS NOTE AND WOUND CARE EVAL TO [facility] [phone] PHONE PUJA [phone]
--- NOTE | 2017-07-31 15:56 | NUR ---
Mobile Developer Note: I faxed patient's clinical information to [facility], phone number . I informed Love from [facility] per , has determined patient does not meet hospice criteria at this time.
--- NOTE | 2017-07-31 17:41 | NUR ---
CALLED AL FROM [facility] AND INQUIRE REGARDING D/C ORDER. SHE SAID SHE WILL CALL HUGH FROM HOSPICE. HUGH CALLED AND ASKED SOME INFORMATION REGARDING MEDICATION AND RESTRAINT. AL CALLED BACK AGAIN AND SHE SAID SHE WILL NOTIFY INDUSTRIAL REAL ESTATE AGENT TMW, SINCE PATIENT HAS NO AUTHORIZATION YET FROM [facility]. AND HUGH FROM HOSPICE SAID SHE WILL CALL DR. VYAS.
--- NOTE | 2017-07-31 18:14 | NUR ---
DR. VYAS CALLED AND ASKED PT. D/C STATUS. INFORMED DR. VYAS THAT PT. STILL AT THE HOSPITAL AND PER AL FROM [facility] SHE WILL COME AND CHECK PT. TOMORROW 08/01/17. GOT T.O. FROM DR. VYAS, READ BACK AND VERIFIED. INFORMED CHARGE NURSE WILMA WOODWARD.
--- NOTE | 2017-07-31 19:15 | NUR ---
RECEIVED REPORT FROM EFRA LABOY AT BEDSIDE FOR TRANSFER OF CARE. PT AOX2, HE IS LYING IN BED WITH NO S/S OF PAIN OR DISTRESS, PT HAS 18G ON R UPPER ARM SALINE LOCKED. BED LOW AND SIDE RAILS UP X [address]. PT HAS A CALM AND COOPERATIVE DEMEANOR, V/S FOLLOWS: T 98.3 P 78 R 18 B/P 120/76 02 98% WITH ROOM AIR. PT REQUESTING SNACK WHICH WAS PROVIDED.
--- NOTE | 2017-07-31 19:15 | NUR ---
BEDSIDE REPORT GIVEN TO STEFANY WOODWARD. PT. CALM, QUIET AND COOPERATIVE. PT. OFF FROM BILATERAL SOFT WRIST RESTRAINT. IN STABLE CONDITION.
[2017-07-31 20:00] VITALS: BP 120/76
--- NOTE | 2017-07-31 23:28 | NUR ---
PT IN BED WATCHING TV. HE IS ABLE TO REPOSITION HIMSELF IN BED WITHOUT ISSUE. PT DISPLAYING NO BEHAVIOR ISSUES AND HAS NO C/O VOICED AT THIS TIME.
--- NOTE | 2017-08-01 00:30 | NUR ---
PT IN LOW BED WITH SIDE RAILS UP X 2, PT OFFERED A URINAL BUT HAD AN INCONTINENT EPISODE ANYHOW. PT CLEANED, TURNED AND DUKE CARE PROVIDED, NO S/S OF PAIN OR DISTRESS, SEIZURE PRECAUTIONS IN PLACE, NO SEIZURE ACTIVITY NOTED. V/S ARE FOLLOW:T 98.0 P 80 R 18 B/P 141/95 O2 98% ON R/A. CALL KAN IN REACH, ALL NEEDS ATTENDED BY STAFF.
--- NOTE | 2017-08-01 04:30 | NUR ---
PT IN LOW BED WITH SIDE RAILS UP X 2 AND NO S/S OF PAIN OR DISTRESS. SEIZURE AND FALL PRECAUTIONS IN PLACE. V/S FOLLOWS T 98.4 P 99 R 18 B/P 105/63 02 99% W R/A. NO C/O VOICED
[2017-08-01] MEDS: ACETAMINOPHEN 325 MG TAB PO PRN (05:11)
[2017-08-01 06:00] VITALS: BP 105/63
--- NOTE | 2017-08-01 07:22 | NUR ---
GAVE REPORT TO MARY DOUGHERTY AT BEDSIDE FOR TRANSFER OF CARE, PT INSTABLE CONDITION.
--- NOTE | 2017-08-01 07:30 | NUR ---
RECEIVED PT FROM CHIEF PROGRAM OFFICER NURSE, STEFANY, PT IS AWAKE AND LYING ON THE BED WITH AN IV LINE SALINE LOCK ON THE RT UA G.18, INTACT. SIDE RAILS ARE UP AND CALL LIGHT WITHIN REACH, FALL PRECAUTION ENFORCED, PT IS NO LONGER ON RESTRAINT. NO SIGN OF DISTRESS NOTED AND WILL CONTINUE TO MONITOR.
[2017-08-01 07:38] LABS: ANION GAP 14.1 (8-16); CARBON DIOXIDE 22.2 mmol/L (21-32); CREATININE 0.8 mg/dL (0.7-1.3); POTASSIUM 4.3 mmol/L (3.5-5.1)
[2017-08-01 08:00] VITALS: BP 131/85
--- NOTE | 2017-08-01 09:00 | NUR ---
PT WAS BEING ASSISTED BY THE PT STAFF WALKING IN THE HALLWAY, NO SOB NOTED. WILL MONITOR.
[2017-08-01] MEDS: THIAMINE 100 MG TAB PO SCH (09:41)
[2017-08-01] MEDS: DIVALPROEX 250 MG TABEC PO SCH ×2 (09:41→20:58)
[2017-08-01] MEDS: levETIRAcetam 100 MG/ML ORASYR PO SCH ×2 (09:41→21:04)
[2017-08-01] MEDS: LACTULOSE 20 GM/30 ML UDC PO SCH ×4 (09:42→20:58)
[2017-08-01] MEDS: DOCUSATE 100 MG/10 ML UDC PO SCH ×2 (09:42→20:59)
[2017-08-01] MEDS: HYDRAGUARD CREAM TP SCH (09:48)
[2017-08-01] MEDS: Z-GUARD PASTE TP SCH (12:04)
--- NOTE | 2017-08-01 13:10 | NUR ---
SPOKE WITH PUJA FROM [facility] THIS MORNING. SHE SAID THIS PATIENT DOES NOT MEED CRITERIA FOR SKILLED PLACEMENT AT SN[facility]. I ASKED ABOUT CUSTODIAL, SHE SAID SHE WOULD CALL ME LATER. RECEIVED A CALL FROM KWAKU, CHURCH ORGANIST [facility]. SHE SPOKE WITH ME AND ARVIND DOUGHERTY CASEMANAGER DIRECTOR ABOUT THIS PATIENT. I RECEIVED A CALL LATER FROM KWAKU STATING SHE FOUND A [facility] BED AT [address] SHE REQUESTED TO SEND A PACKET TO THEM, [facility], FAX [phone] PHONE [phone]. THIS FACILITY IS A SECURE UNIT. ARVIND DOUGHERTY WILL FAX PACKET.
--- NOTE | 2017-08-01 13:40 | NUR ---
DR. CHAYITO VYAS HAD SEEN AND CHECKED THE PT. DR. VYAS ASKED FOR THE IV LINE TO BE REMOVED BECAUSE IT IS INFILTRATED. NO OTHER SIGN OF DISTRESS NOTED ON THE PT AND IS RESPONDING APPROPRIATELY TO THE MD. DR VYAS SAID THAT SHE WILL PUT AN ORDER FOR MEDICATIONS OF MAGNESIUM AND ANTIBIOTIC FOR THE PT. ACKNOWLEDGED AND WILL WAIT FOR THE ORDER FROM THE MD.
--- NOTE | 2017-08-01 13:41 | NUR ---
08/01/17 RD INITIAL ASSESSMENT COMPLETED PLEASE REFER TO NUTRITION ASSESSMENT UNDER CARE ACTIVITY FOR ESTIMATED NUTRITIONAL NEEDS. 1. CONTINUE [facility] SOFT DIET TOLERATED 2. IF PO INTAKE <75% RECOMMEND ENSURE ENLIVE QD 3. RD TO FOLLOW-UP 3-5 DAYS, MODERATE RISK JOHN NAVA, RD
[2017-08-01] MEDS ORDERED: MAG SULF 2000 MG/WATER PREMIX 100 ML IV ONE (14:00)
[2017-08-01] MEDS ORDERED: MAGNESIUM SULFATE 1GM in DEXTROSE 5% 100 ML PREMIX IV SCH (14:45)
--- NOTE | 2017-08-01 14:56 | NUR ---
Bioinformatics Assistant Note: Snf placement follow up: I called and spoke with Emily from [facility] , she stated their admission coordinator Kacie will call me back. I called and spoke with admission coordinator Jeny from [facility] . Per Jeny, they do not have a contract with [employer] and they do not have any exterminator beds at this time. I faxed inquiry to [facility], phone number , fax . Addendum: 08/01/17 at 1519 by Pema Melo SS I called and spoke with Kacie from [facility], phone number , she stated they do not have any group home beds available at this time. She reported they are anticipating having a bed available on Sunday08/05/17. I asked her if her director business development had reviewed inquiry, she said "no". I inquired if her director business development could review inquiry and determine if they can accept patient once a bed becomes available. Kacie stated she will have her director business development review inquiry and Kaice will call me back with a response.
--- NOTE | 2017-08-01 15:17 | NUR ---
THE PT'S SISTER CALLED AND INQUIRED ABOUT THE PT'S STATUS. INQUIRY WAS ANSWERED AND DR. CHAYITO VYAS'S CONTACT NO. WAS GIVEN TO THE SISTER FOR FURTHER INQUIRIES.
[2017-08-01] MEDS: MAGNESIUM SULFATE 1GM in DEXTROSE 5% 100 ML PREMIX IV SCH ×5 (15:18→19:19)
[2017-08-01 16:00] VITALS: BP 128/80
--- NOTE | 2017-08-01 16:17 | NUR ---
Senior Teradata Developer Note: Snf placement follow up: I called and spoke with Kacie from [facility] , she stated their computer installation engineer has declined to accept patient due to patient's aggressive behavior, I explained to her patient is no longer on restraints and asked her if they can consider coming to our hospital and evaluated patient face to face, however, she stated they can't accept patient. I called and spoke with Ksenia from [facility] , she stated their computer installation engineer has declined to accept patient due to patient's aggressive behavior, I explained to her patient is no longer on restraints and asked her if they can consider coming to our hospital and evaluated patient face to face, she reported she will check with her hospice plan administrator and call me back. I called and spoke with Bryn from [facility] , [facility] , and [facility] . Per Bryn, she will came to our hospital tomorrow and evaluate patient, base on evaluation she will determine if patient is appropriate for any of these three snfs, [facility] , [facility] , or [facility] .
--- NOTE | 2017-08-01 16:20 | NUR ---
Scouts Note: Trey Kayla from [facility] , patient was in their facility in June 2017 for a couple of days, was under the care of [facility]. She stated patient went AMA (Against Medical Advice). I called patient's sister Rachel Alicia , no answer, left message. I called and spoke with patient's sister Lainey Alicia. Per Lainey, patient use to live with her and her prior to patient's admission at [facility] . She reported the seed district sales manager of the apartments where she lives found out patient was living with her and told her that her lease contract didn't allow for another person tot live in her apartment. She stated she thinks her sister Rachel Alicia is patient's power of prosecuting attorney agent (for healthcare) and asked me if I had contacted Rachel, I told her I had left her a message and requested to tell her to call me if she talked to Rachel. Lainey informed me there aren't any family members able to accept patient in their home. I explained to her that at this time it has been difficult to find a snf willing to accept patient due to previous information given about patient's aggressive behavior at [facility]. She verbalized understanding and stated patient only becomes aggressive and confused when he isn't medically stable. I provided Lainey with my contact information and explained to her that snfs might contact her and inquire information about patient. She verbalized understanding.
--- NOTE | 2017-08-01 16:49 | NUR ---
DR. CHAYITO VYAS CALLED AND TOLD THAT IF THE PT IS GOING HOME TONIGHT, KEFLEX SHOULD BE CONTINUED FOR 7DAYS WHICH SHOULD BE PUT IN THE DISCHARGE MEDICATION.
--- NOTE | 2017-08-01 16:57 | NUR ---
PHYSICAL THERAPY CO-SIGN The Physical Therapy Progress Notes documented by Ladderman have been reviewed. Reviewed/Co-Signed by: Solomon Hancock PT Documentation Done by: Nicolas Gale BRUSH FABRICATION SUPERVISOR Pt making steady progress increased gait distance but still has notable gait deviation. Addendum: 08/02/17 at 0858 by Solomon Hancock PT Amended: Links added. 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
--- NOTE | 2017-08-01 17:40 | NUR ---
PT WAS CLEANED WITH THE ASSISTANCE OF ARTHUR FRASER. NO SIGN OF DISTRESS NOTED.
[2017-08-01] MEDS: CEPHALEXIN 250 MG CAP PO SCH (17:51)
--- NOTE | 2017-08-01 19:10 | NUR ---
ENDORSED PT TO GREEN BUILDING DESIGN SPECIALIST NURSEJOSUÉ FOR CONTINUITY OF CARE, LAST BAG OF MAGNESIUM WAS HANG AND IS RUNNING AND PATENT. PT IS STABLE AT THIS TIME.
--- NOTE | 2017-08-01 19:11 | NUR ---
RECD. RESTING IN BED, AWAKE, A/OX2, CONFUSED. MAGNESIUM IVP INFUSING, RIGHT AC G20. RESPIRATION EVEN AND UNLABORED. TRYING TO GET OUT OF BED, INSTRUCTED TO STAY IN BED BECAUSE MEDICINE IS STILL INFUSING. SAFETY MEASURES ENFORCED. PLAN OF CARE FOR THE SHIFT DISCUSSED. NEEDS REINFORCEMENT. DENIES PAIN 0/10.
--- NOTE | 2017-08-01 19:58 | NUR ---
Patient's Plan of Care was discussed and reviewed with SOFTWARE ENGINEER MOBILE: JOSUÉ EAGLE
--- NOTE | 2017-08-01 20:05 | NUR ---
FIND STANDING BY THE BED TRYING TO AMBULATE OUT OF THE ROOM, IV PULLED OUT. WILL INSERT ANOTHER.
--- NOTE | 2017-08-01 20:15 | NUR ---
PER SAMPLE PATTERNMAKER PATIENT WENT OUT OF HIS ROOM AND WALK BRISKLY TO THE HALLWAY. SAMPLE PATTERNMAKER AND CHARGE NURSE FOLLOWED PATIENT BUT REFUSED TO OBEY SO CODE PERAZA WAS SOUNDED.
[2017-08-01] MEDS: HALOPERIDOL IM 5 MG/ML VIAL IM PRN (20:23)
--- NOTE | 2017-08-01 20:23 | NUR ---
WENT BACK TO ROOM, SECURITY AND OTHER STAFF WATCHING PATIENT. MEDICATED WITH HALDOL IM BY FARHAT GOMEZ.
--- NOTE | 2017-08-01 20:28 | NUR ---
SITTING ON BED, TAKE OFF GOWN, WANTS TO PUT ON HIS SHIRT. ASSISTED TO PUT IT ON. WANTS TO GO HOME, ADVISED TO STAY, HE IS STILL TAKING MEDICATIONS ORDERED BY MD. OVALLES, DOES NOT LISTENED. Addendum: 08/01/17 at 2036 by Brenda Aleman LVN CORRECTION: CORRECT TIME FOR THIS CHARTING IS 1927 NOT 2027
--- NOTE | 2017-08-01 20:35 | NUR ---
RESTING IN BED, CALM.
[2017-08-01] MEDS: LORazepam 0.5 MG TAB PO PRN (21:28)
--- NOTE | 2017-08-01 23:00 | NUR ---
NO AGITATION, SLEEPING COMFORTABLY IN BED.
[2017-08-02] MEDS: CEPHALEXIN 250 MG CAP PO SCH ×5 (00:54→23:41)
[2017-08-02] MEDS: ACETAMINOPHEN 325 MG TAB PO PRN ×3 (01:28→23:40)
--- NOTE | 2017-08-02 01:45 | NUR ---
AWAKE, GETTING OUT OF BED. OPENS THE TRASH CAN LOOKING FOR SOMETHING. ADVISED TO GO BACK TO BED. OBEYED. CLEANSED AND MADE COMFORTABLE IN BED.
--- NOTE | 2017-08-02 01:50 | NUR ---
PUPT ON HIS HOME CLOTHES AND SITS ON BED.
--- NOTE | 2017-08-02 01:55 | NUR ---
GET OUT THE ROOM AND WALKS IN THE HALLWAY, ASSISTED BACK TO ROOM. AGITATED, VERY CONFUSED.
[2017-08-02] MEDS: HALOPERIDOL IM 5 MG/ML VIAL IM PRN ×3 (02:00→18:04)
--- NOTE | 2017-08-02 02:00 | NUR ---
MEDICATED WITH HALDOL ORDERED.
--- NOTE | 2017-08-02 03:00 | NUR ---
STILL AWAKE, REQUESTED FOR COFFEE.
--- NOTE | 2017-08-02 03:30 | NUR ---
SLEEPING COMFORTABLY IN BED.
[2017-08-02 04:00] VITALS: BP 110/66
--- NOTE | 2017-08-02 07:15 | NUR ---
RECEIVED REPORT FROM AEMT. PT SLEEPING IN BED, AROUSABLE. SKIN DRY AND WARM TO TOUCH. LUNGS SOUND DIMINISHED ON AUSCULTATION, EVEN EXPANSION. NO ACUTE DISTRESS NOTED. VS WNL. LEFT FOREARM 22G SALINE LOCK. ABDOMEN FLAT, SOFT AND NON-TENDER. HYPOACTIVE BOWEL SOUND. SKIN NON-INTACT SACRAL WOUND STAGE 2. KEPT HOB ELEVATED. BED IN LOW POSITION LOCKED. CALL LIGHT WITHIN REACH. WILL CONTINUE TO MONITOR.
--- NOTE | 2017-08-02 07:15 | NUR ---
STILL SLEEPING COMFORTABLY IN BED, ENDORSED TO AM NURSE FOR CONTINUITY OF CARE.
[2017-08-02 07:16] LABS: BASOPHILS % (AUTO) 0.3 % (0.0-2.0); EOSINOPHILS # (AUTO) 0.2 K/uL (0-0.4); EOSINOPHILS % (AUTO) 2.3 % (0.0-4.0); HEMATOCRIT 27.4 % (36-52); HEMOGLOBIN 9.4 g/dL (12.0-18.0); LYMPHOCYTES # (AUTO) 1.5 K/uL (2.0-11.5); LYMPHOCYTES % (AUTO) 17.6 % (20.5-51.1); MEAN CORPUSCULAR HEMOGLOBIN 30 pg (27-31); MEAN CORPUSCULAR HGB CONC 34 g/dL (33-37); MEAN CORPUSCULAR VOLUME 88.7 fL (80-94); MONOCYTES % (AUTO) 12.6 % (1.7-9.3); NEUTROPHILS # (AUTO) 5.5 K/uL (1.8-7.7); NEUTROPHILS % (AUTO) 67.2 % (42.2-75.2); PLATELET COUNT (AUTO) 78 K/uL (140-450); RED BLOOD CELL COUNT(AUTO) 3.09 MIL/uL (4.20-6.10); RED CELL DISTRIBUTION WIDTH 17.7 % (11.6-13.7); WHITE BLOOD COUNT (AUTO) 8.2 K/uL (4.8-10.8)
[2017-08-02 07:41] LABS: ALBUMIN 2.4 g/dL (3.4-5.0); ANION GAP 12.4 (8-16); CARBON DIOXIDE 23.5 mmol/L (21-32); CREATININE 0.8 mg/dL (0.7-1.3); MAGNESIUM 1.9 mg/dL (1.8-2.4); POTASSIUM 3.9 mmol/L (3.5-5.1); TOTAL BILIRUBIN 1.1 mg/dL (0.0-1.0)
[2017-08-02 08:00] VITALS: BP 96/61
[2017-08-02] MEDS: DOCUSATE 100 MG/10 ML UDC PO SCH ×2 (09:33→21:29)
[2017-08-02] MEDS: DIVALPROEX 250 MG TABEC PO SCH ×2 (09:34→21:30)
[2017-08-02] MEDS: levETIRAcetam 100 MG/ML ORASYR PO SCH ×2 (09:34→21:29)
[2017-08-02] MEDS: THIAMINE 100 MG TAB PO SCH (09:34)
[2017-08-02] MEDS: HYDRAGUARD CREAM TP SCH (09:35)
--- NOTE | 2017-08-02 09:37 | NUR ---
PT SITTING IN CHAIR, EATING BREAKFAST. ADMINISTERD MEDICINE TOLERATING WELL. WILL CONTINUE TO MONITOR.
[2017-08-02] MEDS: LACTULOSE 20 GM/30 ML UDC PO SCH ×4 (09:42→21:31)
--- NOTE | 2017-08-02 10:24 | NUR ---
Cooling Tower Operator Note: Per Randy from [facility] , she will come evaluate patient today. I informed patient's nurse Aliza snf representatives will be coming today to evaluate patient.
--- NOTE | 2017-08-02 11:15 | NUR ---
[facility] STAFF RHONDA AT BEDSIDE FOR EVALUATION. UPDATED PT CONDITION. PT QUESTIONS AND ANSWERED. PENDING DIRECTOR EVALUATION BY [facility].
--- NOTE | 2017-08-02 11:16 | NUR ---
PT UP AMBULATING WITH WALKER WITH STEADY GAIT WITH PHYSICAL THERAPY.
--- NOTE | 2017-08-02 11:20 | NUR ---
Senior Support Engineer Note: Bryn from [facility] / came to meet with patient. Per Bryn, she is planning to come back with her linux system administrator Bharathi today and meet with patient again. She stated there is a possibility they might be able to accept patient, manager case Ally mcmanus.
[2017-08-02 12:00] VITALS: BP 99/70
[2017-08-02] MEDS: Z-GUARD PASTE TP SCH (12:08)
--- NOTE | 2017-08-02 13:02 | NUR ---
DR. VYAS IN TO SEE PT. UPDATED PT CONDITION, PAIN STATUS AND STAFF VISIT FROM [facility]. WILL FOLLOW UP ON ORDER.
--- NOTE | 2017-08-02 13:36 | NUR ---
FAXED CONCURRENT REVIEW TO [facility] [phone] PHONE PUJA [phone]
[2017-08-02] MEDS: MENTHOL/METHYL 10%-15% 114 GM TUBE TP PRN ×2 (14:56→23:39)
[2017-08-02] MEDS: LORazepam 0.5 MG TAB PO PRN (14:57)
--- NOTE | 2017-08-02 15:45 | NUR ---
Public Stenographer Note: Per Bryn from [facility] , her and her certified novell administrator Bharathi will not be able to come to meet with patient today. They will come tomorrow between 10am-10:30am, patient's nurse Aliza made aware. Randy from [facility] came to evaluate patient, she stated their facility is not able to accept patient because he does not seem to meet fpc residential criteria since he is ambulating frequently.
--- NOTE | 2017-08-02 18:36 | NUR ---
PT SITTING QUIETLY IN BED EATING DINNER AT THIS TIME. NO CHANGE IN LOC. WILL CONTINUE TO MONITOR.
--- NOTE | 2017-08-02 19:35 | NUR ---
RECEIVED PATIENT WALKING AROUND THE ROOM. PATIENT WAS ALERT AND COOPERATIVE. FALL PRECAUTION IMPLEMENTED. CALL LIGHT WITHIN REACH.
--- NOTE | 2017-08-02 19:35 | NUR ---
ENDORSED TO PROTECTION MANAGER RN FOR CONTINUITY OF CARE. PT ON STABLE CONDITION.
[2017-08-02 20:00] VITALS: BP 132/86
--- NOTE | 2017-08-02 21:00 | NUR ---
MEDICATION GIVEN AND TOLERATED WELL. PATIENT HAS NO SIGN OF AGGRESSION AND OBEYS COMMAND. FALL PRECAUTION IMPLEMENTED. NO S/S OF DISTRESS AT THIS TIME.
--- NOTE | 2017-08-02 23:30 | NUR ---
PATIENT STILL AWAKE ROAMING AROUND THE ROOM. CHANGE PATIENT BED AND ENCOURAGED PATIENT TO SLEEP. BED IN LOW POSITION. WILL CONTINUE TO MONITOR.
[2017-08-03] MEDS: LORazepam 0.5 MG TAB PO PRN (00:32)
--- NOTE | 2017-08-03 01:34 | NUR ---
SEEN PATIENT ASLEEP ON BED.CALL LIGHT WITHIN REACH. BED IN LOW POSITION LOCKED. WILL CONTINUE FREQUENT ROUND AND MONITORING FOR SAFETY.
--- NOTE | 2017-08-03 03:30 | NUR ---
CHECKED PATIENT ASLEEP ON BED. WILL CONTINUE TO MONITOR.
[2017-08-03 04:00] VITALS: BP 106/61
[2017-08-03] MEDS: CEPHALEXIN 250 MG CAP PO SCH ×3 (05:12→18:08)
--- NOTE | 2017-08-03 07:25 | NUR ---
GAVE REPORT TO AM SHIFT NURSE AT PATIENT BEDSIDE FOR CONTINUITY OF CARE. PATIENT IN STABLE CONDITION.
--- NOTE | 2017-08-03 07:30 | NUR ---
RECEIVED REPORT FROM SWIM INSTRUCTOR RN. PATIENT IS IN STABLE CONDITION, NO SIGNS OR SYMPTOMS OF DISTRESS. AAO X3. LUNG SOUNDS ARE CLEAR TO ASCULTATION. HEART RHYTHM IS REGULAR. THERE IS A PRESSURE ULCER TO THE SACRUM. ABDOMEN IS SOFT AND NON-DISTENDED. ACTIVE BOWEL SOUNDS IN ALL QUADRANTS. PATIENT IS ABLE TO AMBULATE. IV SITE IS PATENT AND ASYMPTOMATIC. ALL SAFETY MEASURES ARE IN PLACE. BED IS IN LOWEST POSITION AND CALL LIGHT WITHIN REACH. WILL CONTINUE TO MONITOR.
[2017-08-03] MEDS: MENTHOL/METHYL 10%-15% 114 GM TUBE TP PRN (09:32)
[2017-08-03] MEDS: HYDRAGUARD CREAM TP SCH (09:33)
[2017-08-03] MEDS: levETIRAcetam 100 MG/ML ORASYR PO SCH ×2 (09:33→20:44)
[2017-08-03] MEDS: DOCUSATE 100 MG/10 ML UDC PO SCH ×2 (09:33→20:41)
[2017-08-03] MEDS: DIVALPROEX 250 MG TABEC PO SCH ×2 (09:33→20:43)
--- NOTE | 2017-08-03 09:33 | NUR ---
REPRESENTATIVES FROM [facility] HERE TO EVALUATE PATIENT FOR TRANSFER TO THE FACILITY. SCHEDULED MEDICATIONS GIVEN AT THIS TIME. PATIENT IN STABLE CONDITION. AAO X3. WILL CONTINUE TO MONITOR.
[2017-08-03] MEDS: THIAMINE 100 MG TAB PO SCH (09:34)
[2017-08-03] MEDS: LACTULOSE 20 GM/30 ML UDC PO SCH ×4 (09:34→20:45)
--- NOTE | 2017-08-03 10:16 | NUR ---
Harness Tier Note: Hong from [facility] came to meet with patient. They stated they are not able to accept patient at this time due because he has been given Haldol. They reported there is a possibility they might accept patient if Haldol is discontinued and there aren't any behavior issues, they would like to re-evaluate patient on Sunday08/06/17, Director of Case Management/Harness Tier Rocio mcmanus.
--- NOTE | 2017-08-03 11:17 | NUR ---
FAXED CONCURRENT REVIEW TO [facility] [phone] PHONE [phone]
[2017-08-03] MEDS: Z-GUARD PASTE TP SCH (12:11)
--- NOTE | 2017-08-03 12:11 | NUR ---
SCHEDULED MEDICATIONS GIVEN AT THIS TIME PER MD ORDERS. PATIENT IS EATING LUNCH. NO COMPLAINTS OF PAIN OR DISCOMFORT. SAFETY MEASURES ARE IN PLACE. WILL CONTINUE TO MONITOR.
--- NOTE | 2017-08-03 14:01 | NUR ---
PATIENT SEEN AMBULATING IN ROOM. ALL SAFETY MEASURES ARE IN PLACE. WILL CONTINUE TO MONITOR.
--- NOTE | 2017-08-03 14:55 | NUR ---
PHYSICAL THERAPY CO-SIGN The Physical Therapy Progress Notes documented by Stretching Press Operator have been reviewed. I CONCUR W/DIGITAL MEDIA DESIGNER NOTE; Pt SHOWING PROGRESS WITH PT, CONT PER TX PLAN Reviewed/Co-Signed by: Heaven Cedeño, PT Documentation Done by: JONATHAN SALDIVAR PTA Addendum: 08/03/17 at 1455 by Heaven Cedeño PT Amended: Links added. Addendum: 08/06/17 at 0805 by Heaven Cedeño PT PT WEEKLY (LATE ENTRY FOR 08/04/17) Pt IS SHOWING SIG PROGRESS WITH POC, WILL BENEFIT TO CONT WITH PT SERVICES TO ADDRESS SAFE FUNCTIONAL MOBILITY; ONCE DAILY 3X/WK, X 1 WEEK; DIGITAL MEDIA DESIGNER UPDATED.
[2017-08-03] MEDS: HYDROcodone/APAP 5/325 MG 1 TAB TAB PO PRN (15:37)
--- NOTE | 2017-08-03 15:37 | NUR ---
PATIENT COMPLAINING OF PAIN IN LEFT ARM AND LEFT SIDE OF CHEST. DR. VYAS IS AWARE. WILL ADMINISTER NORCO PER MD ORDERS. WILL CONTINUE TO MONITOR.
[2017-08-03 16:00] VITALS: BP 129/80
--- NOTE | 2017-08-03 16:02 | NUR ---
PATIENT'S SISTER CALLED FOR UPDATE. PATIENT'S CURRENT CONDITION AND PLAN TO TRANSFER TO SNF FOR FURTHER CARE COMMUNICATED TO PATIENT'S SISTER.
--- NOTE | 2017-08-03 19:05 | NUR ---
ENDORSED PLAN OF CARE TO CORNCOB PIPE SUPERVISOR RN. COMMUNICATED FURTHER EVALUATION FROM [facility]. VYAS WILL BE IN TOMORROW TO DISCUSS. PATIENT IN STABLE CONDITION.
--- NOTE | 2017-08-03 19:06 | NUR ---
RECD. SITTING ON BED, AWAKE, A/OX3. RESPIRATION EVEN AND UNLABORED. WATCHING TV. IV SALINE LOCK AT THE LEFT FOREARM G22, PATENT AND INTACT. SAFETY MEASURES ENFORCED. SIDE RAILS PADDED. PLAN OF CARE FOR THE SHIFT DISCUSSED. NOD IN AGREEMENT. DENIES PAIN 0/10.
--- NOTE | 2017-08-03 20:00 | NUR ---
Patient's Plan of Care was discussed and reviewed with WAX ROOM SUPERVISOR: SHAGUFTA
--- NOTE | 2017-08-03 20:41 | NUR ---
DUE PO MEDICATIONS GIVEN, TOLERATED WELL.
--- NOTE | 2017-08-03 23:00 | NUR ---
STILL AWAKE, ADVISED TO GO TO SLEEP BUT STATED HE HAD SLEPT ALL MORNING.
[2017-08-04] VITALS: BP 107/71
--- NOTE | 2017-08-04 01:00 | NUR ---
SLEEPING COMFORTABLY IN BED.
[2017-08-04] MEDS: CEPHALEXIN 250 MG CAP PO SCH ×4 (01:09→17:46)
[2017-08-04] MEDS: HYDROcodone/APAP 5/325 MG 1 TAB TAB PO PRN ×5 (01:12→20:12)
--- NOTE | 2017-08-04 02:00 | NUR ---
AMBULATED TO BR, GAIT WEAK BUT STEADY.
--- NOTE | 2017-08-04 02:00 | NUR ---
PT NIECE CALLED TO SPEAK WITH PT. PT ALSO SAID THAT THE MUSCLE RUB AND THE NORCO HELPED HIM FEEL BETTER.PT NOW IN A GOWN AT THIS TIME AND IN BED WITH NO S/S OF PAIN OR DISCOMFORT NOTED.
--- NOTE | 2017-08-04 06:45 | NUR ---
AWAKE IN BED. CONDITION REMAIN STABLE. ALL NEEDS ATTENDED. WILL ENDORSE TO AM NURSE FOR CONTINUITY OF CARE.
--- NOTE | 2017-08-04 07:20 | NUR ---
ENDORSED TO AM NURSE FOR CONTINUITY OF CARE.
--- NOTE | 2017-08-04 07:30 | NUR ---
RECEIVED ON BED AAOX3, WITH PERIODS OF FORGETFULNESS. NO SOB NOTED. NO C/O PAIN AT THIS TIME. IV TO LT FOREARM PATENT AND INTACT. CHEST CLEAR. ABDOMEN SOFT, BOWEL SOUNDS PRESENT. NO EDEMA NOTED. INSTRUCTED PT TO CALL FOR ASSISTANCE, BED ON LOW POSITION, 3 SIDE RAILS UP, CALL LIGHT WITHIN REACH, PT VERBALIZED UNDERSTANDING.
[2017-08-04 08:00] VITALS: BP 106/63
--- NOTE | 2017-08-04 08:50 | NUR ---
PT SEEN BY DR. VYAS. NO NEW ORDERS.
[2017-08-04] MEDS: levETIRAcetam 100 MG/ML ORASYR PO SCH ×2 (08:55→20:09)
[2017-08-04] MEDS: DOCUSATE 100 MG/10 ML UDC PO SCH ×2 (08:55→20:09)
[2017-08-04] MEDS: DIVALPROEX 250 MG TABEC PO SCH ×2 (08:56→20:09)
[2017-08-04] MEDS: THIAMINE 100 MG TAB PO SCH (08:56)
[2017-08-04] MEDS: LORazepam 0.5 MG TAB PO PRN (08:57)
[2017-08-04] MEDS: HYDRAGUARD CREAM TP SCH (08:58)
[2017-08-04] MEDS: LACTULOSE 20 GM/30 ML UDC PO SCH ×4 (09:00→20:08)
[2017-08-04] MEDS: MENTHOL/METHYL 10%-15% 114 GM TUBE TP PRN (12:03)
[2017-08-04] MEDS: Z-GUARD PASTE TP SCH (12:05)
--- NOTE | 2017-08-04 12:35 | NUR ---
PT STATED HE WANTED TO GO HOME AND HAVE HER SISTER PICK HIM UP. WILL GIVEN PT'S SISTER A CALL. Addendum: 08/04/17 at 1900 by Jaki Bauer RN *WILL GIVE PT'S SISTERS A CALL. *
--- NOTE | 2017-08-04 13:00 | NUR ---
SPOKE WITH PT'S SISTER ALEM ([phone]), ALEM STATED THAT SHE AND HER SISTER CANNOT TAKE PT HOME DUE TO THEMSELVES HAVING ILLNESS WELL AND CAN NOT HANDLE HIS MEDICAL CARE. CHARGE NURSE NOTIFIED. Addendum: 08/04/17 at 1510 by Jaki Bauer RN PT NOTIFIED REGARDING THE ABOVE ISSUE AND AGREED TO STAY UNTIL CASE MANAGEMENT CAN FIND PLACEMENT.
[2017-08-04 16:00] VITALS: BP 99/61
--- NOTE | 2017-08-04 16:00 | NUR ---
PT'S SISTERS ALEM AND HERIBERTO WERE ABLE TO SPEAK WITH PT OVER THE PHONE THE REASON WHY NEITHER ONE OF THEM CAN TAKE HIM HOME AND THAT PT NEEDS TO COOPERATE WITH THE HOSPITAL STAFF WHILE WAITING PLACEMENT. PT VERBALIZED UNDERSTANDING.
--- NOTE | 2017-08-04 18:05 | NUR ---
PT CONSUMED 100% OF ALL MEALS SERVED. FOOD TOLERATED. NO N&V NOTED.
--- NOTE | 2017-08-04 19:02 | NUR ---
PT WATCHING TV. NO SOB NOTED. NO COMPLAINTS MADE. WILL ENDORSE TO NEXT SHIFT NURSE FOR CONTINUITY OF CARE.
--- NOTE | 2017-08-04 19:05 | NUR ---
REPORT RECEIVED FROM DAY SHIFT NURSE AT BEDSIDE, HE IS AOX3 SITTING UP WITH HOB 45%. PT HAS NO S/S OF DISTRESS, HE IS IS STREET CLOTHES AT THIS [place], AND IS SITTING UP IN BED AND TALKING WITH HIS SISTER. IV SITE IS IN LEFT F/A AND IS A 22 G.
--- NOTE | 2017-08-04 20:15 | NUR ---
PT C/O 9/10 PAIN IN LEFT SIDE OF BODY. HE WAS GIVEN NORCO 5/325MG ORDERED AND ALSO THE MUSCLE RUB.
[2017-08-05 00:07] VITALS: BP 109/69
[2017-08-05] MEDS: CEPHALEXIN 250 MG CAP PO SCH ×5 (00:26→23:44)
[2017-08-05] MEDS: MENTHOL/METHYL 10%-15% 114 GM TUBE TP PRN ×3 (00:29→17:58)
--- NOTE | 2017-08-05 04:00 | NUR ---
PT LYING IN BED. V/S FOLLOWS: T 99.3 P 87 R 20 B/P 112/75 02 98 WITH R/A. PT GIVEN TYLENOL FOR GENERAL DISCOMFORT.
[2017-08-05] MEDS: ACETAMINOPHEN 325 MG TAB PO PRN (05:24)
--- NOTE | 2017-08-05 06:00 | NUR ---
PT IN BED NO S/S OF PAIN OR DISTRESS NOTED ALL NEEDS ATTENDED BY STAFF. SEIZURE PRECAUTIONS ION PLACE AND ALL FALL PRECAUTIONS IN PLACE.
[2017-08-05 08:00] VITALS: BP 106/61
[2017-08-05] MEDS: LACTULOSE 20 GM/30 ML UDC PO SCH ×4 (08:59→21:16)
[2017-08-05] MEDS: levETIRAcetam 100 MG/ML ORASYR PO SCH ×2 (09:00→21:16)
[2017-08-05] MEDS: DOCUSATE 100 MG/10 ML UDC PO SCH ×2 (09:00→21:16)
[2017-08-05] MEDS: HYDROcodone/APAP 5/325 MG 1 TAB TAB PO PRN ×3 (09:01→21:17)
[2017-08-05] MEDS: DIVALPROEX 250 MG TABEC PO SCH ×2 (09:01→21:17)
[2017-08-05] MEDS: THIAMINE 100 MG TAB PO SCH (09:02)
[2017-08-05] MEDS: HYDRAGUARD CREAM TP SCH (09:02)
--- NOTE | 2017-08-05 10:00 | NUR ---
PT'S SISTER HERIBERTO AT THE BEDSIDE VISITING. PT EXPRESSED THAT HE WANTS TO GO HOME WITH HIS SISTER HERIBERTO BUT SHE REFUSED TO TAKE PT HOME WITH HER. HERIBERTO STATED " IF YOU GO HOME WITH ME, YOU WILL CAUSE I AM SICK AND I CAN NOT TAKE CARE OF YOU AND THE SAME WITH ALEM". PT GOT UPSET AND TOLD HERIBERTO TO GO. EXPLAINED TO PT THAT BY TOMORROW, [facility] WILL BE HERE TO EVALUATE HIM. PT VERBALIZED UNDERSTANDING.
[2017-08-05] MEDS: LORazepam 0.5 MG TAB PO PRN (12:54)
[2017-08-05] MEDS: Z-GUARD PASTE TP SCH (12:55)
--- NOTE | 2017-08-05 14:00 | NUR ---
PT AWAKE. CALM, DRAWING ON PAPER, MAKING SELF BUSY. NO SOB NOTED. NO COMPLAINTS MADE.
[2017-08-05 16:00] VITALS: BP 101/73
--- NOTE | 2017-08-05 16:50 | NUR ---
PT TALKING TO SISTER ALEM ON THE PHONE. PT CALM AT THIS TIME.
--- NOTE | 2017-08-05 19:00 | NUR ---
PT AWAKE. NO SOB NOTED. NO COMPLAINTS MADE. WILL ENDORSE TO NEXT SHIFT NURSE FOR CONTINUITY OF CARE.
--- NOTE | 2017-08-05 19:25 | NUR ---
RECEIVED BEDSIDE REPORT FROM DAY SHIFT NURSE MEJIA RN, PT STABLE, NO DISTRESS NOTED, IV TO L FA 22G SL, PATENT, INTACT, PT ON ROOM AIR NO SOB, PT STATED HAVING PAIN, WILL MEDICATE WHEN PAIN MEDICATION IS DUE, PT STATED UNDERSTANDING, INITIAL ASSESSMENT DONE, ALL SAFETY PRECAUTION MET, WILL CONTINUE TO MONITOR.
--- NOTE | 2017-08-05 21:17 | NUR ---
DUE MEDICATION ADMINISTERED PT TOLERATED WELL, NO DISTRESS NOTED, CALL LIGHT WITHIN REACH, WILL CONTINUE TO MONITOR. Addendum: 08/06/17 at 0037 by Aleta Causey RN PT ALSO STATED PAIN ON THE LEFT ARM 07/15, PAIN MEDICATION DUE ADMINISTERED, PT TOLERATED WELL
--- NOTE | 2017-08-05 22:00 | NUR ---
PT AMBULATED TO SHOWER ROOM, PT TOOK A SHOWER, THEN WENT BACK TO BED, PT STABLE, NO DISTRESS NOTED, CALL LIGHT WITHIN REACH, WILL CONTINUE TO MONITOR.
--- NOTE | 2017-08-05 23:44 | NUR ---
DUE MEDICATION ADMINISTERED. PT TOLERATED WELL, V/S TAKEN, WNL, PT STABLE, NO DISTRESS NOTED, CALL LIGHT WITHIN REACH, WILL CONTINUE TO MONITOR.
[2017-08-06] VITALS: BP 107/71
--- NOTE | 2017-08-06 01:30 | NUR ---
PT EATING FOOD FROM HIS SISTER (IT IS UNKNOWN HOW LONG HAS THE FOOD BEEN ON PT BEDSIDE, PT WOULD NOT LET US THROW IT AWAY), STATED THAT THE FOOD IS STILL GOOD, AND HE STILL WANTS TO EAT IT. PT STABLE, NO DISTRESS NOTED, CALL LIGHT WITHIN REACH, WILL CONTINUE TO MONITOR.
--- NOTE | 2017-08-06 02:22 | NUR ---
PT SLEEPING, NO DISTRESS NOTED, CALL LIGHT WITHIN REACH, WILL CONTINUE TO MONITOR.
[2017-08-06] MEDS: CEPHALEXIN 250 MG CAP PO SCH (05:14)
[2017-08-06] MEDS: MENTHOL/METHYL 10%-15% 114 GM TUBE TP PRN (05:17)
--- NOTE | 2017-08-06 05:17 | NUR ---
DUE MEDICATION GIVEN, PT STATED L ARM FEELING SORE, MEDICATION ORDERED GIVEN, PT TOLERATED WELL, NO DISTRESS NOTED, CALL LIGHT WITHIN REACH, WILL CONTINUE TO MONITOR.
[2017-08-06] MEDS: HYDROcodone/APAP 5/325 MG 1 TAB TAB PO PRN ×3 (06:39→20:54)
--- NOTE | 2017-08-06 06:39 | NUR ---
PT STATED FEELING PAIN, PAIN MEDICATION GIVEN, PT TOLERATED WELL, NO DISTRESS NOTED, CALL LIGHT WITHIN REACH, WILL CONTINUE TO MONITOR.
--- NOTE | 2017-08-06 07:05 | NUR ---
RECEIVED PATIENT REPORT AT BEDSIDE. PATIENT ASLEEP BUT AROUSABLE. NO S/S OF DISTRESS. NO C/O PAIN AT THIS TIME. IV LINE NOTED TO THE LEFT FOREARM SALINE LOCKED. BED LOWERED WITH CALL LIGHT WITHIN REACH. WILL CONTINUE TO MONITOR
--- NOTE | 2017-08-06 07:29 | NUR ---
ENDORSED PT TO DAY SHIFT NURSE GIORGIO RN, PT IN STABLE CONDITION, NO DISTRESS NOTED.
[2017-08-06 07:55] VITALS: BP 103/71
[2017-08-06] MEDS: LACTULOSE 20 GM/30 ML UDC PO SCH ×4 (08:34→20:27)
[2017-08-06] MEDS: DOCUSATE 100 MG/10 ML UDC PO SCH ×2 (08:35→20:26)
[2017-08-06] MEDS: levETIRAcetam 100 MG/ML ORASYR PO SCH ×2 (08:35→20:28)
[2017-08-06] MEDS: DIVALPROEX 250 MG TABEC PO SCH ×2 (08:35→20:28)
[2017-08-06] MEDS: THIAMINE 100 MG TAB PO SCH (08:35)
[2017-08-06] MEDS: HYDRAGUARD CREAM TP SCH (09:46)
--- NOTE | 2017-08-06 09:58 | NUR ---
PATIENT SITTING IN BED, WATCHING TELEVISION. NO S/S OF DISTRESS NOTED
--- NOTE | 2017-08-06 10:25 | NUR ---
Sap Bobj Developer Note: I reviewed nurses' notes over weekend, there is no documentation indicating patient displayed any aggressive behaviors, haldol discontinued, I informed Bryn from [facility] of this. Per Bryn, she will come to evaluate patient once again today, she stated she will call me and let me know what time she will be coming, correctional counselor/case manager Ally mcmanus.
[2017-08-06] MEDS: Z-GUARD PASTE TP SCH (13:51)
--- NOTE | 2017-08-06 13:55 | NUR ---
Tin Pourer Note: I called and spoke with Bryn from [facility] , per Bryn, she will most likely come after 3pm today, she stated she will call me and give me an update on approximate time she will be coming to hospital today.
--- NOTE | 2017-08-06 14:00 | NUR ---
Stogy Roller Note: Per Bryn from [facility] , per Bryn, she will come to re-evaluate patient today after 3pm, director of case management/manager social work dept Rocio mcmanus.
--- NOTE | 2017-08-06 14:12 | NUR ---
Soldering Machine Feeder Note: Per Meli from [facility] , they aren't able to accept patient due to previous aggressive behaviors and they do not have any correction beds. Per admission coordinator from [facility] , they aren't able to accept patient due to previous aggressive behaviors and they do not have any correction beds. Per Castillo from [facility] , unable to accept patient. [phone], [facility] to accept patient.
--- NOTE | 2017-08-06 14:42 | NUR ---
FAXED CONCURRENT REVIEW TO [facility] [phone] PHONE PUJA [phone]
--- NOTE | 2017-08-06 15:13 | NUR ---
PATIENT AWAKE IN BED, WATCHING TELEVISION. NO S/S OF DISTRESS NOTED
--- NOTE | 2017-08-06 15:37 | NUR ---
PATIENT SEEN BY RAJINDER FROM [facility].
--- NOTE | 2017-08-06 16:04 | NUR ---
08/06/17 RD FOLLOW UP COMPLETED PLEASE REFER TO NUTRITION ASSESSMENT UNDER CARE ACTIVITY FOR ESTIMATED NUTRITIONAL NEEDS. 1. CONTINUE [facility] SOFT DIET TOLERATED 2. RD TO FOLLOW-UP 3-5 DAYS, MODERATE RISK JOHN [address] RD
[2017-08-06 16:38] VITALS: BP 132/87
--- NOTE | 2017-08-06 17:51 | NUR ---
Egg Separator Note: Per Bryn from [facility] , patient has been accepted and his bed at their facility will be available on 08/08/17. I called and spoke patient's sister Rachel Alicia , she stated [facility] is too far and she won't be able to visit him at [facility]. She requested I find a snf near her home in [place]. I explained to her that I was only able to contact those snfs that are contracted with [facility] and/or [facility] and that at this time the only snf willing to accept patient is [facility]. I informed her that I had contact numerous snfs and that all of them had declined to accept patient due to previous aggressive behaviors and/or lack of intermission coordinator beds. I inquired if she was able to care for patient in her home or if she had any other family members that could, she responded that she has medical problems and can't take care of patient and that there is no one able to take patient in their home. She ended call by stating she had to go and talk to her other sister Lainey. Addendum: 08/07/17 at 1038 by Pema Melo SS I called and spoke with Williams from [facility] today 08/07/17, he stated he came on Sunday08/03/17 to meet with patient and yesterday was informed by radiology administrator Jarek they can't accept patient, he reported Jarek didn't provide him with reason.
[2017-08-06] MEDS: LORazepam 0.5 MG TAB PO PRN ×2 (18:18→23:23)
--- NOTE | 2017-08-06 19:20 | NUR ---
RECEIVED REPORT FROM DAY SHIFT NURSE AT BEDSIDE. PT IN STABLE CONDITION. PT ASLEEP BUT EASILY AWOKEN. L FA 22G IV SALINE LOCKED. IV PATENT. BED LOCKED IN LOW POSITION WITH SIDE RAILS UP X2. BOARD UPDATED. WILL CONTINUE TO MONITOR.
--- NOTE | 2017-08-06 19:30 | NUR ---
PATIENT REPORT GIVEN AT BEDSIDE. PATIENT ENDORSED IN STABLE CONDITION
--- NOTE | 2017-08-06 20:31 | NUR ---
PT SITTING AT BEDSIDE EATING. ADMINISTERED EVENING MEDICATIONS. PT TOLERATED WELL. PT C/O PAIN AND IS REQUESTING PAIN MEDICINE.
--- NOTE | 2017-08-06 20:56 | NUR ---
PAIN MEDICINE ADMINISTERED. PT TOLERATED WELL. WILL REASSESS FOR EFFECTIVENESS.
--- NOTE | 2017-08-06 22:40 | NUR ---
PT SITTING AT BEDSIDE WATCHING TV. ALL NEEDS ARE MET AT THIS TIME. WILL CONTINUE TO MONITOR.
--- NOTE | 2017-08-06 23:23 | NUR ---
PT VS WITHIN NORMAL LIMITS. PT C/O ANXIETY AND INABILITY TO SLEEP. PT REQUESTED PRN ATIVAN. ADMINISTERED, WILL EVALUATE FOR EFFECTIVENESS.
[2017-08-07] VITALS: BP 125/78
--- NOTE | 2017-08-07 00:09 | NUR ---
PT IS NOW ASLEEP IN BED. NO S/SX OF DISTRESS. ATIVAN WAS EFFECTIVE. WILL CONTINUE TO MONITOR PT.
--- NOTE | 2017-08-07 01:58 | NUR ---
PT IS AWAKE IN BED WATCHING TV. NO S/SX OF DISTRESS. WILL CONTINUE TO MONITOR.
[2017-08-07] MEDS: HYDROcodone/APAP 5/325 MG 1 TAB TAB PO PRN ×3 (04:02→21:19)
--- NOTE | 2017-08-07 04:05 | NUR ---
PT HAVING DIFFICULTY SLEEPING. PT C/O PAIN IN SHOULDER AND REQUESTED PAIN MEDICINE. ADMINISTERED PAIN MEDICINE WILL EVALUATE FOR EFFECTIVENESS.
--- NOTE | 2017-08-07 06:00 | NUR ---
PT AWAKE AND WATCHING TV IN BED. ALL NEEDS ARE MET AT THIS TIME. WILL CONTINUE TO MONITOR.
--- NOTE | 2017-08-07 07:10 | NUR ---
ENDORSED PT TO DAY SHIFT NURSE AT BEDSIDE FOR CONTINUITY OF CARE. PT IN STABLE CONDITION.
[2017-08-07 08:00] VITALS: BP 119/78
[2017-08-07] MEDS: DIVALPROEX 250 MG TABEC PO SCH ×2 (08:50→21:13)
[2017-08-07] MEDS: DOCUSATE 100 MG/10 ML UDC PO SCH ×2 (08:50→21:13)
[2017-08-07] MEDS: LACTULOSE 20 GM/30 ML UDC PO SCH ×4 (08:50→21:12)
[2017-08-07] MEDS: THIAMINE 100 MG TAB PO SCH (08:51)
[2017-08-07] MEDS: levETIRAcetam 100 MG/ML ORASYR PO SCH ×2 (08:51→21:12)
--- NOTE | 2017-08-07 10:45 | NUR ---
Fuel House Attendant Note: I called and spoke with Williams from [facility] he stated he came on Sunday08/03/17 to meet with patient and yesterday 08/06/17 was informed by lead database administrator Jarek they can't accept patient, he reported Jarek didn't provide him with reason.
--- NOTE | 2017-08-07 11:45 | NUR ---
SPOKE WITH PATIENT'S SISTERS ALEM AND HERIBERTO. THEY SAID THEY AGREE WITH THE PLAN OF TRANSFERRING THE PATIENT TO [facility] ON SUNDAY
[2017-08-07] MEDS: LORazepam 0.5 MG TAB PO PRN ×2 (13:33→23:10)
[2017-08-07] MEDS: HYDRAGUARD CREAM TP SCH (13:33)
[2017-08-07] MEDS: Z-GUARD PASTE TP SCH (13:34)
--- NOTE | 2017-08-07 13:35 | NUR ---
Train Operator Note: I spoke with block and case maker Sherry from [facility], informed her patient has been accepted at [facility] for long-term intermediate frame tender placement and bed will be available tomorrow 08/08/17. I explained to her that [facility] needs authorization for intermediate frame tender snf placement. I explained to her at this time [facility] is the only snf willing to accept patient and that numerous snfs have decline to accpet patient. She reported she will discuss this with her director and call me and/or block and case maker Gavin back. Addendum: 08/07/17 at 1443 by Pema CARRERO block and case maker Sherry from [facility]
--- NOTE | 2017-08-07 13:38 | NUR ---
PATIENT SEEN BY DR VYAS
--- NOTE | 2017-08-07 14:40 | NUR ---
PATIENT IS ASLEEP IN BED. NO S/S OF DISTRESS NOTED
--- NOTE | 2017-08-07 14:42 | NUR ---
Clinical review faxed to Sherry at [facility] and Sherry will be looking for SNF for placement as well. Spoke to Social service related to arrangement of SNF.
--- NOTE | 2017-08-07 14:47 | NUR ---
Csr Technician Note: Per dependency case manager Sherry from [facility] , she wants to contact snfs and attempt to find one that is able to accept patient, she requested I fax HNP, list of medications, and labs to her, along with my notes indicating which snfs have declined to accept patient, she provided me with her fax number, . I faxed info to Sherry. Addendum: 08/07/17 at 1455 by Pema Melo SS Per RN Isma, he spoke with one of patient's sisters and she told him she was planning to take patient home today. He reported same sisters called back and stated she had changed her mind and to please transfer patient to [facility].
[2017-08-07 16:00] VITALS: BP 95/63
--- NOTE | 2017-08-07 18:25 | NUR ---
Parachute Panel Joiner Note: Per case finisher Sherry from [facility] she will contact Bryn from [facility] either today or tomorrow and provide her with snf authorization. Sherry stated she will call me tomorrow and provide me with authorization for transportation, name and phone number of transportation company that can be used. Addendum: 08/07/17 at 1838 by Pema CARRERO Per patient, he is in agreement with being transfer to [facility] tomorrow 08/08/17.
--- NOTE | 2017-08-07 19:12 | NUR ---
RECEIVED REPORT FROM DAY SHIFT NURSE AT BEDSIDE. PT IN STABLE CONDITION, SITING AT BEDSIDE. PT IS A/O X4. IV SITE IN L FA 22G SALINE LOCKED. IV INTACT AND PATENT. PT HAS PU ON SACRAL COCCYX AREA. BED LOCKED IN LOW POSITION WITH SIDE RAILS UP. SEIZURE PRECAUTIONS IN PLACE. BOARD UPDATED. WILL CONTINUE TO MONITOR.
--- NOTE | 2017-08-07 19:30 | NUR ---
PATIENT ENDORSED TO THE WOOL HANKER NURSE. PATIENT ENDORSED IN STABLE CONDITION
--- NOTE | 2017-08-07 21:12 | NUR ---
ADMINISTERED EVENING MEDICATIONS TO PT. PT TOLERATED WELL. PT C/O SHOULDER PAIN AND IS REQUESTING PAIN MEDICATION.
--- NOTE | 2017-08-07 21:19 | NUR ---
PAIN MEDICATION ADMINISTERED FOR SHOULDER PAIN. WILL REEVALUATE PT FOR EFFECTIVENESS IN ONE HOUR.
--- NOTE | 2017-08-07 22:19 | NUR ---
PT NOW SLEEPING COMFORTABLY IN BED. NO S/SX OF DISTRESS. WILL CONTINUE TO MONITOR.
--- NOTE | 2017-08-07 23:11 | NUR ---
PT REQUESTED ATIVAN D/T RESTLESSNESS AND FEELING ANXIOUS. ADMINISTERED MEDICATION. WILL REVALUATE FOR EFFECTIVENESS.
[2017-08-08] VITALS: BP 118/81
--- NOTE | 2017-08-08 00:09 | NUR ---
PT IS SITTING AT BEDSIDE DRAWING A PICTURE. STATED HE IS FEELING LESS ANXIOUS. WILL CONTINUE TO MONITOR.
--- NOTE | 2017-08-08 01:17 | NUR ---
PT STILL AWAKE. LYING IN BED. REQUESTED PUDDING. WILL CONTINUE TO MONITOR PT.
--- NOTE | 2017-08-08 02:55 | NUR ---
PT ASLEEP IN BED. NO SIGNS OF DISTRESS. WILL CONTINUE TO MONITOR.
--- NOTE | 2017-08-08 04:37 | NUR ---
PT IS AWAKE AND UP FROM BED. PT REQUESTED A SNACK. PUDDING GIVEN TO PT. WILL CONTINUE TO MONITOR.
--- NOTE | 2017-08-08 06:02 | NUR ---
WOUND CLEANED AND DRESSING CHANGED. PT TOLERATED WELL. WILL CONTINUE TO MONITOR.
--- NOTE | 2017-08-08 07:15 | NUR ---
ENDORSED PT TO DAY SHIFT NURSE FOR CONTINUITY OF CARE. PT IN STABLE CONDITION.
--- NOTE | 2017-08-08 07:15 | NUR ---
RECEIVED NE FROM BLOCKERS SKIVER NURSE PATRICIA, PT STABLE AT THIS TIME, IV IN LEFT AC SL PATENT WITH NO SIGNS OF INFECTION. ON RA, ABLE TO FOLLOW COMMANDS, ABLE TO MAKE NEEDS KNOWN, UPDATED BOARD AND EXPLAINED PLAN OF CARE, CALL LIGHT WITHIN REACH, WILL CONTINUE MONITOR.
[2017-08-08 08:00] VITALS: BP 124/91
--- NOTE | 2017-08-08 08:02 | NUR ---
Certified Orthotic Fitter Note: I called and spoke with human services case manager Sherry from [facility] , I requested authorization transportation to [facility] . Per Sherry, she will call me back and provide me with information.
--- NOTE | 2017-08-08 08:55 | NUR ---
[facility].
[2017-08-08] MEDS: DOCUSATE 100 MG/10 ML UDC PO SCH (09:13)
[2017-08-08] MEDS: DIVALPROEX 250 MG TABEC PO SCH (09:13)
[2017-08-08] MEDS: THIAMINE 100 MG TAB PO SCH (09:14)
[2017-08-08] MEDS: levETIRAcetam 100 MG/ML ORASYR PO SCH (09:14)
[2017-08-08] MEDS: HYDRAGUARD CREAM TP SCH (09:14)
--- NOTE | 2017-08-08 09:21 | NUR ---
CALLED PHARMACY SPOKE WITH ES REGARDING LACTULOSE ASKED TO [facility]OCK AND GIVE ONCE ON UNIT
[2017-08-08] MEDS: HYDROcodone/APAP 5/325 MG 1 TAB TAB PO PRN (09:24)
--- NOTE | 2017-08-08 09:31 | NUR ---
Intelligence Operations Note: Per caser shoe parts Sherry from [facility] , she has arranged transportation, warehouse picker time is 11:30am today, charge nurse Parish made aware. Sherry stated she will fax snf authorization to [facility] today, fax number , Bryn from [facility] made aware. Per Bryn from [facility] / , patient can go to room 137A, accepting physician is , Bryn aware warehouse picker time is at 11:30am today.
[2017-08-08] MEDS: LACTULOSE 20 GM/30 ML UDC PO SCH (09:55)
--- NOTE | 2017-08-08 10:30 | NUR ---
CALLED [facility] TO GIVE REPORT TO FARHAT WEI, PT WILL BE TRANSPORTED AT 1130.
[2017-08-08 10:31] VITALS: BP 134/91
--- NOTE | 2017-08-08 11:12 | NUR ---
D/C PAPERWORK COMPLETED, IV IN LEFT AC 22 G D/C, CATH IN TACT, ARM BANDS REMOVED, TRANSFER TO [facility] WILL BE DONE AT 1130.
--- NOTE | 2017-08-08 11:43 | NUR ---
PT LEFT VIA GURNEY, PT STABLE AT THIS TIME.
== END 2017-08-08 11:30 | DRG 279 ==
LOC: MED 19:07 → MTU 23:15
PROVIDERS: ADMIT Internal Medicine Geriatric Medicine; ATTEND Internal Medicine Geriatric Medicine
DX: K72.90 Hepatic failure, unspecified without coma (principal); N17.0 Acute kidney failure with tubular necrosis; E43 Unspecified severe protein-calorie malnutrition; R64 Cachexia; D68.4 Acquired coagulation factor deficiency; N18.6 End stage renal disease; D69.6 Thrombocytopenia, unspecified; I12.0 Hypertensive chronic kidney disease with stage 5 chronic kidney disease or end stage renal disease; K70.10 Alcoholic hepatitis without ascites; B18.2 Chronic viral hepatitis C; D64.9 Anemia, unspecified; F41.9 Anxiety disorder, unspecified; K74.60 Unspecified cirrhosis of liver; Z66 Do not resuscitate; K21.9 Gastro-esophageal reflux disease without esophagitis; R74.0 Nonspecific elevation of levels of transaminase and lactic acid dehydrogenase [LDH]; F29 Unspecified psychosis not due to a substance or known physiological condition; M25.50 Pain in unspecified joint; G89.29 Other chronic pain; Z68.1 Body mass index [BMI] 19.9 or less, adult; K59.09 Other constipation; R41.0 Disorientation, unspecified; E83.42 Hypomagnesemia; G40.909 Epilepsy, unspecified, not intractable, without status epilepticus; I10 Essential (primary) hypertension
CPT/HCPCS: 36415; 70450; 71045; 76700; 80048; 80053; 80305; 81003; 82105; 82140; 82150; 82607; 82746; 83036; 83540; 83605; 83690; 83735; 83880; 84100; 84436; 84439; 84443; 84479; 84484; 85025; 85045; 85610; 85730; 87040; 87081; 93005; 97110; 97116; 97140; 97530; 99285; C1758; J1630; J2060; J3475; J7030; Q0092; Q0163